=== PATIENT | female | born 1990 | race Caucasian/White ===

== ENCOUNTER 2019-04-05 09:24 | Outpatient (CLI) | payer BC, MEDICAID, SELFPAY ==
[2019-04-05 09:38] LABS: Basophils Absolute Auto 0.03 K/mm3 (0.00-0.10); Basophils Percent Auto 0.4 % (0.0-1.0); Eosinophils Absolute Auto 0.12 K/mm3 (0.02-0.50); Eosinophils Percent Auto 1.5 % (1.0-6.0); Hematocrit 40.8 % (35.0-49.0); Hemoglobin 13.9 g/dL (12.0-15.0); Immature Granulocyte Absolute 0.02 K/mm3 (0.00-0.00); Immature Granulocyte Percent A 0.2 % (0.0-0.0); Lymphocytes Absolute Auto 3.47 K/mm3 (1.10-4.50); Lymphocytes Percent Auto 43.3 % (18.0-42.0); Mean Corpuscular HGB Conc 34.1 g/dL (32.0-36.0); Mean Corpuscular Hemoglobin 31.8 pg (27.0-31.0); Mean Corpuscular Volume 93.4 fL (78.0-102.0); Mean Platelet Volume 9.8 fl (9.2-11.8); Monocytes Absolute Auto 1.01 K/mm3 (0.10-0.90); Monocytes Percent Auto 12.6 % (2.0-11.0); Neutrophils Absolute Auto 3.4 K/mm3 (1.7-7.2); Platelet Count Result 277 K/mm3 (150-420); Red Blood Count 4.37 M/mm3 (4.20-5.40); Red Cell Distribution Width 12.5 % (11.6-14.4)
[2019-04-05 10:59] LABS: Alanine Aminotransferase 24 U/L (14-59); Albumin Level 4.2 g/dL (3.4-5.0); Alkaline Phosphatase 62 U/L (46-116); Anion Gap 16.1 mmol/L (7-16); Aspartate Amino Transferase 14 U/L (15-37); Bilirubin,Total 0.4 mg/dL (0.00-1.00); Blood Urea Nitrogen 8 mg/dL (7-18); Calcium 9.5 mg/dL (8.5-10.1); Carbon Dioxide 25 mmol/L (21-32); Chloride 103 mmol/L (98-108); Cholesterol 144 mg/dL (0-200); Estimated Glomerular Filt Rate > 60; Glucose 86 mg/dL (70-99); HDL Direct 46 mg/dL (40-60); LDL Cholesterol Calculated 81 mg/dL (<130); Osmolality Calculated 287 mOsm/kg (285-295); Potassium 4.1 mmol/L (3.5-5.1); Sodium 140 mmol/L (136-145); Total Protein 7.8 g/dL (6.4-8.2); Triglycerides 85 mg/dL (0-150)
== END 2019-04-05 09:25 | disposition home or self-care (01) ==
LOC: CHSLAB 09:25
PROVIDERS: PCP Nurse Practitioner Family; Visit Provider Nurse Practitioner Family
DX: E78.5 Hyperlipidemia, unspecified (principal); I10 Essential (primary) hypertension
CPT/HCPCS: 36415; 80053; 80061; 85025

== ENCOUNTER 2020-08-23 11:50 | Outpatient (CLI) | payer BC, MEDICAID, SELFPAY ==
[2020-08-23 12:03] LABS: Basophils Absolute Auto 0.02 K/mm3 (0.00-0.10); Basophils Percent Auto 0.2 % (0.0-1.0); Eosinophils Absolute Auto 0.12 K/mm3 (0.02-0.50); Eosinophils Percent Auto 1.4 % (1.0-6.0); Hematocrit 39.2 % (35.0-49.0); Hemoglobin 13.1 g/dL (12.0-15.0); Immature Granulocyte Absolute 0.03 K/mm3 (0.00-0.00); Immature Granulocyte Percent A 0.3 % (0.0-0.0); Lymphocytes Absolute Auto 3.37 K/mm3 (1.10-4.50); Lymphocytes Percent Auto 39.1 % (18.0-42.0); Mean Corpuscular HGB Conc 33.4 g/dL (32.0-36.0); Mean Corpuscular Hemoglobin 31.6 pg (27.0-31.0); Mean Corpuscular Volume 94.7 fL (78.0-102.0); Mean Platelet Volume 9.5 fl (9.2-11.8); Monocytes Absolute Auto 1.13 K/mm3 (0.10-0.90); Monocytes Percent Auto 13.1 % (2.0-11.0); Neutrophils Absolute Auto 3.9 K/mm3 (1.7-7.2); Neutrophils Percent Auto 45.9 % (50.0-70.0); Platelet Count Result 278 K/mm3 (150-420); Red Blood Count 4.14 M/mm3 (4.20-5.40); Red Cell Distribution Width 12.5 % (11.6-14.4); White Blood Count 8.6 K/mm3 (4.8-10.8)
[2020-08-23 12:46] LABS: Alanine Aminotransferase 20 U/L (14-59); Albumin Level 3.6 g/dL (3.4-5.0); Alkaline Phosphatase 55 U/L (46-116); Anion Gap 10 mmol/L (8-16); Aspartate Amino Transferase 12 U/L (15-37); Bilirubin,Total 0.2 mg/dL (0.00-1.00); Blood Urea Nitrogen 10 mg/dL (7-18); Calcium 9.6 mg/dL (8.5-10.1); Carbon Dioxide 26 mmol/L (21-32); Chloride 104 mmol/L (98-108); Cholesterol 210 mg/dL (0-200); Estimated Glomerular Filt Rate > 60; Glucose 97 mg/dL (70-99); HDL Direct 43 mg/dL (40-60); LDL Cholesterol Calculated 124 mg/dL (<130); Osmolality Calculated 289 mOsm/kg (285-295); Potassium 4.1 mmol/L (3.5-5.1); Sodium 140 mmol/L (136-145); Total Protein 7.1 g/dL (6.4-8.2); Triglycerides 217 mg/dL (0-150)
== END 2020-08-23 11:51 | disposition home or self-care (01) ==
LOC: CHSLAB 11:53
PROVIDERS: PCP Nurse Practitioner Family; Visit Provider Nurse Practitioner Family
DX: I10 Essential (primary) hypertension (principal)
CPT/HCPCS: 36415; 80053; 80061; 85025

== ENCOUNTER 2021-11-02 15:54 | Outpatient (CLI) | payer BC, SELFPAY ==
[2021-11-02 16:09] LABS: Basophils Absolute Auto 0.02 K/mm3 (0.00-0.10); Basophils Percent Auto 0.2 % (0.0-1.0); Eosinophils Absolute Auto 0.02 K/mm3 (0.02-0.50); Eosinophils Percent Auto 0.2 % (1.0-6.0); Hematocrit 38.9 % (35.0-49.0); Hemoglobin 13.2 g/dL (12.0-15.0); Immature Granulocyte Absolute 0.03 K/mm3 (0.00-0.00); Immature Granulocyte Percent A 0.3 % (0.0-0.0); Lymphocytes Absolute Auto 2.41 K/mm3 (1.10-4.50); Lymphocytes Percent Auto 26.1 % (18.0-42.0); Mean Corpuscular HGB Conc 33.9 g/dL (32.0-36.0); Mean Corpuscular Hemoglobin 31.7 pg (27.0-31.0); Mean Corpuscular Volume 93.3 fL (78.0-102.0); Mean Platelet Volume 9.4 fl (9.2-11.8); Monocytes Absolute Auto 1.17 K/mm3 (0.10-0.90); Monocytes Percent Auto 12.7 % (2.0-11.0); Neutrophils Absolute Auto 5.6 K/mm3 (1.7-7.2); Neutrophils Percent Auto 60.5 % (50.0-70.0); Platelet Count Result 276 K/mm3 (150-420); Red Blood Count 4.17 M/mm3 (4.20-5.40); Red Cell Distribution Width 12.5 % (11.6-14.4); White Blood Count 9.2 K/mm3 (4.8-10.8)
[2021-11-02 16:25] LABS: Alanine Aminotransferase 15 U/L (14-59); Alkaline Phosphatase 52 U/L (46-116); Anion Gap 9 mmol/L (8-16); Aspartate Amino Transferase < 10 U/L (15-37); Bilirubin,Total 0.3 mg/dL (0.00-1.00); Blood Urea Nitrogen 9 mg/dL (7-18); Calcium 9.5 mg/dL (8.5-10.1); Carbon Dioxide 24 mmol/L (21-32); Chloride 98 mmol/L (98-108); Cholesterol 184 mg/dL (0-200); Estimated Glomerular Filt Rate > 60; HDL Direct 53 mg/dL (40-60); LDL Cholesterol Calculated 113 mg/dL (<130); Potassium 4.1 mmol/L (3.5-5.1); Sodium 131 mmol/L (136-145); Total Protein 7.6 g/dL (6.4-8.2); Triglycerides 90 mg/dL (0-150)
[2021-11-02 16:31] LABS: Glucose 95 mg/dL (70-99); Osmolality Calculated 270 mOsm/kg (285-295)
== END 2021-11-02 15:55 | disposition home or self-care (01) ==
PROVIDERS: PCP Nurse Practitioner Family; Visit Provider Nurse Practitioner Family
DX: I10 Essential (primary) hypertension (principal); E78.5 Hyperlipidemia, unspecified
CPT/HCPCS: 36415; 80053; 80061; 85025

== ENCOUNTER 2022-01-31 16:31 | Outpatient (CLI) | payer BC, SELFPAY ==
[2022-01-31 18:01] LABS: Add Urine Microscopic? NO; Appearance Urine Clear (Clear); Bilirubin Urine Negative (Negative); Blood Urine Negative (Negative); Color Urine Yellow (Yellow); Glucose Urine UA Negative (Negative); Ketones Urine Negative (Negative); Leukocyte Esterase Ur Negative LEU/UL (Negative); Nitrate Urine Negative (Negative); Protein Urine Negative (Negative); Urobilinogen Urine 0.2 mg/dL (0.2-1.0)
[2022-01-31 18:37] LABS: Alanine Aminotransferase 16 U/L (14-59); Albumin Level 4.2 g/dL (3.4-5.0); Alkaline Phosphatase 57 U/L (46-116); Anion Gap 10 mmol/L (8-16); Aspartate Amino Transferase 12 U/L (15-37); Bilirubin,Total 0.4 mg/dL (0.00-1.00); Blood Urea Nitrogen 6 mg/dL (7-18); Calcium 9.6 mg/dL (8.5-10.1); Carbon Dioxide 27 mmol/L (21-32); Chloride 103 mmol/L (98-108); Estimated Glomerular Filt Rate > 60; Glucose 101 mg/dL (70-99); Osmolality Calculated 287 mOsm/kg (285-295); Potassium 4.6 mmol/L (3.5-5.1); Sodium 140 mmol/L (136-145); Total Protein 7.4 g/dL (6.4-8.2)
== END 2022-01-31 16:32 | disposition home or self-care (01) ==
LOC: CHSLAB 16:33
PROVIDERS: PCP Nurse Practitioner Family; Visit Provider Nurse Practitioner Family
DX: R11.0 Nausea (principal); I10 Essential (primary) hypertension; Z87.898 Personal history of other specified conditions
CPT/HCPCS: 36415; 80053; 81003

== ENCOUNTER 2022-06-08 23:10 | Emergency (ER) | payer BC, OTHER, SELFPAY ==
[2022-06-08 23:10] VITALS: BP 131/88; PULSE 88; RESP 20; TEMP 36.8; O2SAT 99
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
--- NOTE | 2022-06-08 23:51 | ECG_ITS ---
Measurements Intervals [place] Rate: 84 P: 41 HI: 155 QRS: 27 QRSD: 91 T: 18 QT: 345 QTc: 408 Interpretive Statements SINUS RHYTHM WITH SINUS ARRHYTHMIA BASELINE ARTIFACT NORMAL ECG NO PREVIOUS ECG AVAILABLE FOR COMPARISON Electronically Signed On 06-10-2022 15:40:22 CDT by Eric Valiente M.D.
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
[2022-06-09 00:16] LABS: Basophils Absolute Auto 0.02 K/mm3 (0.00-0.10); Basophils Percent Auto 0.2 % (0.0-1.0); Eosinophils Absolute Auto 0.05 K/mm3 (0.02-0.50); Eosinophils Percent Auto 0.5 % (1.0-6.0); Hematocrit 37.9 % (35.0-49.0); Hemoglobin 12.4 g/dL (12.0-15.0); Immature Granulocyte Absolute 0.03 K/mm3 (0.00-0.00); Immature Granulocyte Percent A 0.3 % (0.0-0.0); Lymphocytes Absolute Auto 2.39 K/mm3 (1.10-4.50); Lymphocytes Percent Auto 23.1 % (18.0-42.0); Mean Corpuscular HGB Conc 32.7 g/dL (32.0-36.0); Mean Corpuscular Hemoglobin 31.3 pg (27.0-31.0); Mean Corpuscular Volume 95.7 fL (78.0-102.0); Mean Platelet Volume 9.4 fl (9.2-11.8); Monocytes Percent Auto 7.7 % (2.0-11.0); Neutrophils Absolute Auto 7.1 K/mm3 (1.7-7.2); Neutrophils Percent Auto 68.2 % (50.0-70.0); Platelet Count Result 284 K/mm3 (150-420); Red Blood Count 3.96 M/mm3 (4.20-5.40); Red Cell Distribution Width 12.7 % (11.6-14.4); White Blood Count 10.4 K/mm3 (4.8-10.8)
--- NOTE | 2022-06-09 00:39 | PC.NURSE ---
This RN contacted [facility] to see what needs to be done with the pt. Abdulkadir from [facility] reports he is on his way to evaluate the pt.
[2022-06-09 00:41] LABS: Acetaminophen < 2 ug/mL (10-30); Alanine Aminotransferase 19 U/L (14-59); Albumin Level 4.1 g/dL (3.4-5.0); Alkaline Phosphatase 54 U/L (46-116); Anion Gap 12 mmol/L (8-16); Aspartate Amino Transferase 13 U/L (15-37); Bilirubin,Total 0.3 mg/dL (0.00-1.00); Blood Urea Nitrogen 10 mg/dL (7-18); Calcium 9.4 mg/dL (8.5-10.1); Carbon Dioxide 27 mmol/L (21-32); Chloride 104 mmol/L (98-108); Estimated CRCL calculation 87 ml/min; Estimated Glomerular Filt Rate > 60; Ethanol < 3 mg/dL (0-6); Glucose 110 mg/dL (70-99); Osmolality Calculated 296 mOsm/kg (285-295); Potassium 3.7 mmol/L (3.5-5.1); Salicylate 0.6 mg/dL (2.8-20.0); Sodium 143 mmol/L (136-145); Thyroid Stimulating Hormone 1.54 uIU/mL (0.36-3.74); Total Protein 7.6 g/dL (6.4-8.2)
--- NOTE | 2022-06-09 01:28 | PC.NURSE ---
[facility] lead customer service representative arrived to assess the pt
[2022-06-09] MEDS: ACETAMINOPHEN 160 MG/5 ML ORAL SYRINGE 640 MG PO (04:20)
[2022-06-09 05:33] VITALS: BP 131/81; PULSE 88; RESP 20; TEMP 36.9; O2SAT 99
== END 2022-06-09 05:41 | disposition home or self-care (01) ==
PROVIDERS: Emergency Provider Emergency Medicine
DX: F39 Unspecified mood [affective] disorder (principal); I10 Essential (primary) hypertension; E78.5 Hyperlipidemia, unspecified; G40.909 Epilepsy, unspecified, not intractable, without status epilepticus
CPT/HCPCS: 36415; 80053; 80307; 84443; 85025; 93005; 99283; A9270

== ENCOUNTER 2022-08-07 15:46 | Outpatient (CLI) | payer BC, OTHER, SELFPAY ==
[2022-08-07 17:13] LABS: Iron 38 ug/dL (50-170); Vitamin B12 507 pg/mL (193-986)
[2022-08-10 17:45] LABS: Vitamin D 25 Hydroxy 23 ng/mL (30-100)
== END 2022-08-07 15:47 | disposition home or self-care (01) ==
LOC: CHSLAB 15:49
PROVIDERS: PCP Nurse Practitioner Family; Visit Provider Nurse Practitioner Family
DX: R53.83 Other fatigue (principal); Z79.899 Other long term (current) drug therapy
CPT/HCPCS: 36415; 82306; 82607; 83540

== ENCOUNTER 2023-11-07 14:53 | Outpatient (CLI) | payer BC, OTHER, SELFPAY ==
[2023-11-07 15:40] LABS: Basophils Absolute Auto 0.04 K/mm3 (0.00-0.10); Basophils Percent Auto 0.5 % (0.0-1.0); Eosinophils Absolute Auto 0.07 K/mm3 (0.02-0.50); Eosinophils Percent Auto 0.9 % (1.0-6.0); Hematocrit 41.4 % (35.0-49.0); Hemoglobin 13.5 g/dL (12.0-15.0); Immature Granulocyte Absolute 0.02 K/mm3 (0.00-0.00); Immature Granulocyte Percent A 0.3 % (0.0-0.0); Lymphocytes Absolute Auto 2.69 K/mm3 (1.10-4.50); Lymphocytes Percent Auto 36.2 % (18.0-42.0); Mean Corpuscular HGB Conc 32.6 g/dL (32-36); Mean Corpuscular Volume 98.1 fL (78.0-102.0); Mean Platelet Volume 10.6 fl (9.2-11.8); Monocytes Absolute Auto 0.94 K/mm3 (0.10-0.90); Monocytes Percent Auto 12.6 % (2.0-11.0); Neutrophils Absolute Auto 3.68 K/mm3 (1.70-7.20); Neutrophils Percent Auto 49.5 % (50.0-70.0); Platelet Count Result 209 K/mm3 (150-420); Red Blood Count 4.22 M/mm3 (4.20-5.40); Red Cell Distribution Width 13.2 % (11.6-14.4); White Blood Count 7.4 K/mm3 (4.8-10.8)
[2023-11-07 15:58] LABS: Add Urine Microscopic? NO; Appearance Urine Clear (Clear); Bilirubin Urine Negative (Negative); Blood Urine Negative (Negative); Color Urine Light Yellow (Yellow); Glucose Urine UA Negative (Negative); Ketones Urine Negative (Negative); Leukocyte Esterase Ur Negative LEU/UL (Negative); Nitrate Urine Negative (Negative); Protein Urine Negative (Negative); Specific Grav Ur 1.015 (1.010-1.020); Urobilinogen Urine 0.2 mg/dL (0.2-1.0); pH Urine 6.5 (5.0-8.0)
[2023-11-09 04:08] LABS: Vitamin D 25 Hydroxy 24 ng/mL (30-100)
[2023-11-09 09:24] LABS: Alanine Aminotransferase 13 U/L (6-35); Albumin Level 4.7 g/dL (3.5-5.1); Alkaline Phosphatase 47 U/L (38-126); Anion Gap 12 mmol/L (4-12); Aspartate Amino Transferase 20 U/L (14-36); Bilirubin,Total 0.4 mg/dL (0.2-1.3); Blood Urea Nitrogen 8 mg/dL (7-17); Calcium 9.9 mg/dL (8.4-10.2); Carbon Dioxide 27 mmol/L (22-30); Chloride 101 mmol/L (98-107); Estimated Glomerular Filt Rate > 60; Glucose 84 mg/dL (65-110); Iron 107 ug/dL (37-170); Magnesium 1.8 mg/dL (1.6-2.3); Osmolality Calculated 287 mOsm/kg (285-295); Potassium 4.2 mmol/L (3.4-5.0); Sodium 140 mmol/L (137-145)
== END 2023-11-07 14:54 | disposition home or self-care (01) ==
PROVIDERS: PCP Nurse Practitioner Family; Visit Provider Nurse Practitioner Family
DX: D50.9 Iron deficiency anemia, unspecified (principal); R53.83 Other fatigue; Z87.898 Personal history of other specified conditions; Z79.899 Other long term (current) drug therapy
CPT/HCPCS: 36415; 80053; 81003; 82306; 82607; 82728; 83540; 83735; 85025

== ENCOUNTER 2024-09-06 13:25 | Emergency (ER) | payer OTHER, SELFPAY ==
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
--- OUTSIDE RECORDS SUMMARY | 2024-09-06 13:27 | XMS_ITS | Clinical Summary ---
Author Organization [facility] [employer] Address [address] [place] [address] Care Team Providers Care Vocational Rehab Consultant Name Role Phone Kan Gordillo MD Primary Care Provider [phone] Source Comments [facility] [employer],non-owned Affiliates and Associated Physician Practices is amultiple site organization consisting of ambulatory clinics and hospital sitesin [place], [place], [place] and [place]. This disclosure is being madepursuant to the Care Everywhere program and may not contain all information available regarding this patient. Last updated 17.[facility] Allergies No known active allergies Medications * Be aware that medications may not be up to date on this document. Alwaysverify current medications with the patient. divalproex (DEPAKOTE SPRINKLES) 125 MG capsuleIndicati ons:Seizures (HCC) Take 6 Caps by mouth 2 times daily. No further refills until appointment is made. 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 Gender Identity Not on file Sexual Orientation Not on file Last Filed Vital Signs Vital Sign Reading Time Taken Comments Blood Pressure 100/62 12/12/2010 9:39 AM CDT Pulse - - Temperature - - Respiratory Rate - - Oxygen Saturation - - Inhaled Oxygen Concentration - - Weight 99 kg (218 lb 4.1 oz) 12/12/2010 9:39 AM CDT Height 170.6 cm (5' 7.17) 12/12/2010 9:39 AM CD T Body Mass Index 34.02 12/12/2010 9:39 AM CDT Plan of Treatment Health Maintenance Due Date Last Done Comments HIV SCREENING 09/16/2006 HEPATITIS C SCREENING 09/12/2009 DTAP/TDAP/TD VACCINES (1 - Tdap) 09/16/2010 HEPATITIS B VACCINE (1 of 3 - 19+ 3-dose series) 09/16/2010 COVID-19 VACCINE (1 - 2023-2 5 season) 2023 DEPRESSION SCREENING 03/05/2024 INFLUENZA VACCINE (Season Ended) 2024 ZOSTER VACCINE (1 of 2) 09/16/2041 HIB VACCINE Aged Out No longer eligi ble based on patient's age to complete this topic HPV VACCINE Aged Out No longer eligi ble based on patient's age to complete this topic MENINGOCOCCAL (Group B) VACC INE SHARED DECISION-MAKING Aged Out No longer eligibl e based on patient's age to complete this topic MENINGOCOCCAL GROUPS A/C/Y/W VACCINE Aged Out No longer eligible b ased on patient's age to complete this topic PNEUMOCOCCAL VACCINE Aged Out No long er eligible based on patient's age to complete this topic Care Teams Vocational Rehab Consultant Relationship Specialty Start Date End Date Kan Gordillo MD [address] [place] [address] PCP - General 12/09/10
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
[2024-09-06 13:29] VITALS: BP 123/94; PULSE 112; RESP 16; TEMP 36.6; O2SAT 99
--- NOTE | 2024-09-06 13:33 | ED.GENADULT ---
HPI - General Adult General Chief complaint: Unspecified Stated complaint: behavioral issues Time Seen by Provider: 09/06/24 13:33 Related Data Home Medications ?Medication ?Instructions ?Recorded ?Confirmed ?Last Taken ?Type divalproex 125 mg capsule,delayed 125 mg PO TID 08/07/22 11/07/23 Unknown History release sprinkle (Depakote Sprinkles) Allergies Allergy/AdvReac Type Severity Reaction Status Date / Time No Known Allergies Allergy Verified 09/06/24 13:31 [facility] Past Medical History Medical History (Updated 12/31/23 @ 13:44 by Eliana Humphrey NP) Moderate intellectual disabilities Hyperlipidemia HTN (hypertension) Seizure disorder Surgical History Surgical History [place] teeth removed Family History Family History Grandparent Lung cancer Social History Social History Smoking status: Never smoker Tobacco type: cigarettes Course Vital Signs Vital signs: Vital Signs Temperature 36.6 C 09/06/24 13:29 Pulse Rate 112 H 09/06/24 13:29 Respiratory Rate 16 09/06/24 13:29 Blood Pressure 123/94 H 09/06/24 13:29 Pulse Oximetry 99 09/06/24 13:29 Oxygen Delivery Room Air 09/06/24 13:29 Temperature 36.6 C 09/06/24 13:29 Pulse Rate 112 H 09/06/24 13:29 Respiratory Rate 16 09/06/24 13:29 Blood Pressure 123/94 H 09/06/24 13:29 Pulse Oximetry 99 09/06/24 13:29 Oxygen Delivery Room Air 09/06/24 13:29 Medical Decision Making Vital Signs Vital Signs: Vital Signs Temperature 36.6 C 09/06/24 13:29 Pulse Rate 112 H 09/06/24 13:29 Respiratory Rate 16 09/06/24 13:29 Blood Pressure 123/94 H 09/06/24 13:29 Pulse Oximetry 99 09/06/24 13:29 Oxygen Delivery Room Air 09/06/24 13:29 Temperature 36.6 C 09/06/24 13:29 Pulse Rate 112 H 09/06/24 13:29 Respiratory Rate 16 09/06/24 13:29 Blood Pressure 123/94 H 09/06/24 13:29 Pulse Oximetry 99 09/06/24 13:29 Oxygen Delivery Room Air 09/06/24 13:29 Discharge Plan Discharge Patient Language: Lebanese Prescriptions: No Action divalproex [Depakote Sprinkles] 125 mg capsule, delayed rel sprinkle 125 mg PO TID Rx Instructions: take 4 tablets QAM take 4 tablets HS escitalopram oxalate 5 mg/5 mL solution See Rx Instructions .ROUTE .COMPLEX Qty: 300 2RF Dose Instruction: TAKE 10 ML BY MOUTH DAILY Rx Instructions: TAKE 10 ML BY MOUTH DAILY Follow-up/Referrals: UNKNOWN,DOCTOR [Primary Care Provider] -
--- NOTE | 2024-09-06 13:40 | ED.PSYCH ---
HPI - Psych General Chief Complaint: Unspecified <Pradip Geronimo MD - Last Filed: 09/07/24 07:13> Stated Complaint: behavioral issues <Pradip Geronimo MD - Last Filed: 09/07/24 07:13> Time Seen by Provider: 09/06/24 13:33 <Pradip Geronimo MD - Last Filed: 09/07/24 07:13> Source: patient <Pradip Geronimo MD - Last Filed: 09/07/24 07:13> Mode of arrival: ambulatory <Pradip Geronimo MD - Last Filed: 09/07/24 07:13> Limitations: no limitations <Pradip Geronimo MD - Last Filed: 09/07/24 07:13> History of Present Illness HPI Narrative: 33-year-old female with a history hypertension, dyslipidemia, Ca disorder, developmental delay with intellectual disability, anger outbursts was brought in by EMS for -- aggressive behavior. The patient wanted to go out but mother did not want her to leave the house. The patient got angry and punched a glass window. The patient has had prior episodes of anger outburst. EN route to the hospital as by EMS the patient has been quiet and calm. -- Abrasions over the right hand from punching a glass window. <Pradip Geronimo MD - Last Filed: 09/07/24 07:13> MD complaint: other <Pradip Geronimo MD - Last Filed: 09/07/24 07:13> Onset (ago): hour(s) ( 3 hours) <Pradip Geronimo MD - Last Filed: 09/07/24 07:13> History of same: Yes <Pradip Geronimo MD - Last Filed: 09/07/24 07:13> Relieving factors: none <Pradip Geronimo MD - Last Filed: 09/07/24 07:13> Exacerbating factors: none <Pradip Geronimo MD - Last Filed: 09/07/24 07:13> Associated psychiatric symptoms: none <Pradip Geronimo MD - Last Filed: 09/07/24 07:13> Associated symptoms: denies other symptoms <Pradip Geronimo MD - Last Filed: 09/07/24 07:13> Treatments prior to arrival: none <Pradip Geronimo MD - Last Filed: 09/07/24 07:13> Details of plan: patient is unable to comprehend on being asked whether she is suicidal or homicidal. <Pradip Geronimo MD - Last Filed: 09/07/24 07:13> Related Data Home Medications: Home Medications ?Medication ?Instructions ?Recorded ?Confirmed ?Last Taken ?Type divalproex 125 mg capsule,delayed 125 mg PO TID 08/07/22 11/07/23 Unknown History release sprinkle (Depakote Sprinkles) <Pradip Geronimo MD - Last Filed: 09/07/24 07:13> Allergies/Adverse Reactions: Allergies Allergy/AdvReac Type Severity Reaction Status Date / Time No Known Allergies Allergy Verified 09/06/24 13:31 <Pradip Geronimo MD - Last Filed: 09/07/24 07:13> Review of Systems Review of Systems: All systems reviewed & are unremarkable except as noted in HPI and below <Pradip Geronimo MD - Last Filed: 09/07/24 07:13> ROS unobtainable: Yes unobtainable due to mental status <Pradip Geronimo MD - Last Filed: 09/07/24 07:13> PMFSH Past Medical History Medical History: Medical History (Updated 09/07/24 @ 09:56 by Jimmie Rucker MD) Moderate intellectual disabilities Hyperlipidemia HTN (hypertension) Seizure disorder <Pradip Geronimo MD - Last Filed: 09/07/24 07:13> Surgical History Surgical History: Surgical History [place] teeth removed <Pradip Geronimo MD - Last Filed: 09/07/24 07:13> Family History Family History: Family History Grandparent Lung cancer <Pradip Geronimo MD - Last Filed: 09/07/24 07:13> Social History Social History: Social History Smoking status: Never smoker Tobacco type: cigarettes <Pradip eGronimo MD - Last Filed: 09/07/24 07:13> Exam Narrative: Pulse 112. Blood pressure 123/94. Oxygen saturation 99% on room air. Afebrile <Pradip Geronimo MD - Last Filed: 09/07/24 07:13> Const: General: healthy appearing and no acute distress <Pradip Geronimo MD - Last Filed: 09/07/24 07:13> Nutritional Appearance: well nourished <Pradip Geronimo MD - Last Filed: 09/07/24 07:13> HENMT: Head: normal to inspection <Pradip Geronimo MD - Last Filed: 09/07/24 07:13> Ears: external ears normal <Pradip Geronimo MD - Last Filed: 09/07/24 07:13> Face/Nose/Sinus: Normal external nose present <Pradip Geronimo MD - Last Filed: 09/07/24 07:13> Face and sinus: normal facial exam <Pradip Geronimo MD - Last Filed: 09/07/24 07:13> Mouth: Yes Normal oral and palatal mucosa present <Pradip Geronimo MD - Last Filed: 09/07/24 07:13> Throat: posterior oropharynx normal <Pradip Geronimo MD - Last Filed: 09/07/24 07:13> Eyes: Conjunctivae: conjunctivae normal <Pradip Geronimo MD - Last Filed: 09/07/24 07:13> Pupils: Equal, round and reactive pupils present <Pradip Geronimo MD - Last Filed: 09/07/24 07:13> EOM: EOMs intact bilaterally <Pradip Geronimo MD - Last Filed: 09/07/24 07:13> Direct Ophthalmoscopy: no photophobia <Pradip Geronimo MD - Last Filed: 09/07/24 07:13> Neck: Neck: normal visual inspection, no lymphadenopathy and no meningeal signs <Pradip Geronimo MD - Last Filed: 09/07/24 07:13> Chest: Chest palpation & inspection: normal inspection of the chest <Pradip Geronimo MD - Last Filed: 09/07/24 07:13> Resp: Effort & Inspection: normal respiratory effort <Pradip Geronimo MD - Last Filed: 09/07/24 07:13> Auscultation: clear to auscultation bilaterally <Pradip Geronimo MD - Last Filed: 09/07/24 07:13> Cardio: Rate: regular rate <Pradip Geronimo MD - Last Filed: 09/07/24 07:13> Rhythm: regular rhythm <Pradip Geronimo MD - Last Filed: 09/07/24 07:13> GI: GI Palp: Yes Soft to palpation <Pradip Geronimo MD - Last Filed: 09/07/24 07:13> Auscultation: normal bowel sounds <Pradip Geronimo MD - Last Filed: 09/07/24 07:13> Other: no tenderness/ rigidity / rebound. <Pradip Geronimo MD - Last Filed: 09/07/24 07:13> Back/Spine/Pelvis: Back: no CVA tenderness <Pradip Geronimo MD - Last Filed: 09/07/24 07:13> Skin: General skin exam: normal color <Pradip Geronimo MD - Last Filed: 09/07/24 07:13> Other: Few abrasions on the right hand. Bruising of the left elbow and left knee. <Pradip Geronimo MD - Last Filed: 09/07/24 07:13> Neuro: General: patient oriented x3, moves all extremities, no meningeal signs, no focal motor deficits and CN's II-XI intact bilaterally <Pradip Geronimo MD - Last Filed: 09/07/24 07:13> Cranial nerves: Yes Nystagmus not present <Pradip Geronimo MD - Last Filed: 09/07/24 07:13> Speech: normal speech <Pradip Geronimo MD - Last Filed: 09/07/24 07:13> Gait exam (Neuro): Normal gait present <Pradip Geronimo MD - Last Filed: 09/07/24 07:13> Extrem: General: normal to inspection and no clubbing, cyanosis or edema <Pradip Geronimo MD - Last Filed: 09/07/24 07:13> Psych: Mental Status: mental status grossly normal <Pradip Geronimo MD - Last Filed: 09/07/24 07:13> Affect: normal affect <Pradip Geronimo MD - Last Filed: 09/07/24 07:13> Attitude: cooperative <Pradip Geronimo MD - Last Filed: 09/07/24 07:13> Course Course Emergency Course: Intellectual disability anger outbursts patient is medically cleared for psychiatric evaluation. unable to get placement until now. Patient has been signed down to Dr. Fleming at 7:00 a.m.. <Pradip Geronimo MD - Last Filed: 09/07/24 07:13> Vital Signs Vital signs: Vital Signs Temperature 36.6 C 09/06/24 13:29 Pulse Rate 112 H 09/06/24 13:29 Respiratory Rate 16 09/06/24 13:29 Blood Pressure 123/94 H 09/06/24 13:29 Pulse Oximetry 99 09/06/24 13:29 Oxygen Delivery Room Air 09/06/24 13:29 Temperature 36.6 C 09/07/24 10:11 Pulse Rate 83 09/07/24 10:11 Respiratory Rate 18 09/07/24 10:11 Blood Pressure 102/71 09/07/24 10:11 Pulse Oximetry 100 09/07/24 10:11 Oxygen Delivery Room Air 09/07/24 10:11 <Pradip Geronimo MD - Last Filed: 09/07/24 07:13> Vital Signs Temperature 36.6 C 09/06/24 13:29 Pulse Rate 112 H 09/06/24 13:29 Respiratory Rate 16 09/06/24 13:29 Blood Pressure 123/94 H 09/06/24 13:29 Pulse Oximetry 99 09/06/24 13:29 Oxygen Delivery Room Air 09/06/24 13:29 Temperature 36.6 C 09/07/24 10:11 Pulse Rate 83 09/07/24 10:11 Respiratory Rate 18 09/07/24 10:11 Blood Pressure 102/71 09/07/24 10:11 Pulse Oximetry 100 09/07/24 10:11 Oxygen Delivery Room Air 09/07/24 10:11 <Jimmie Rucker MD - Last Filed: 09/07/24 12:13> MDM - Psych MDM Narrative Medical decision making narrative: creative services manager have called from the psychiatric services and said that okay to discharge patient based on all parties have deflected from their point of view. Father is present and we are letting him know that we are discharging the patient to his care. creative services manager will get in touch with the patient and family to give further resources. We will discharge patient at this time and give Keflex for antibiotics for UTI. At discharge, the patient was throwing a temper tantrum and required extra staff and PD to assist with getting her into the car. This was a similar scenario as her other hospital visits over the past week when it is time for discharge. The patient does not want live at home anymore and that is what stimulates her to have a tantrum. We did give her a home dose of her Ativan which was not for restraint or sedation above and beyond her baseline medication from home. We gave the same dose of 1 mg Ativan that she takes regularly when agitated. There was a controlled environment to help get patient into her car. No injuries occurred. Successful task. <Jimmie Rucker MD - Last Filed: 09/07/24 12:13> Lab Data Attestation: I reviewed the patient's lab results. <Jimmie Rucker MD - Last Filed: 09/07/24 12:13> Result diagrams: 09/06/24 14:18 09/06/24 14:18 <Pradip Geronimo MD - Last Filed: 09/07/24 07:13> Labs: Lab Results 09/06/24 Range/Units 14:18 WBC 8.9 (4.8-10.8) K/mm3 RBC 4.34 (4.20-5.40) M/mm3 Hgb 13.4 (12.0-15.0) g/dL Hct 40.7 (35.0-49.0) % MCV 93.8 (78.0-102.0) fL MCH 30.9 (27.0-31.0) pg MCHC 32.9 (32-36) g/dL RDW 12.4 (11.6-14.4) % Plt Count 253 (150-420) K/mm3 MPV 9.6 (9.2-11.8) fl Immature Gran % (Auto) 0.3 H (0.0-0.0) % Neut % (Auto) 65.8 (50.0-70.0) % Lymph % (Auto) 23.7 (18.0-42.0) % [place] % (Auto) 9.2 (2.0-11.0) % Eos % (Auto) 0.7 L (1.0-6.0) % Baso % (Auto) 0.3 (0.0-1.0) % Lymph # (Auto) 2.11 (1.10-4.50) K/mm3 [place] # (Auto) 0.82 (0.10-0.90) K/mm3 Eos # (Auto) 0.06 (0.02-0.50) K/mm3 Baso # (Auto) 0.03 (0.00-0.10) K/mm3 Abs Immat Gran (auto) 0.03 H (0.00-0.00) K/mm3 Absolute Neuts (auto) 5.84 (1.70-7.20) K/mm3 Absolute Nucleated RBC 0.00 (0.00-0.00) K/mm3 Nucleated RBC % 0.0 (0-0.0) % Sodium 140 (137-145) mmol/L Potassium 4.3 (3.4-5.0) mmol/L Chloride 108 H (98-107) mmol/L Carbon Dioxide 28 (22-30) mmol/L Anion Gap 4 (4-12) mmol/L BUN 12 (7-17) mg/dL Creatinine 0.86 (0.7-1.0) mg/dL Estim Creat Clear Calc 91 ml/min Estimated GFR > 60 (59 - ) Glucose 89 (65-110) mg/dL Calculated Osmolality 288 (285-295) mOsm/kg Calcium 9.0 (8.4-10.2) mg/dL Total Bilirubin 0.5 (0.2-1.3) mg/dL AST 26 (14-36) U/L ALT 13 (6-35) U/L Alkaline Phosphatase 52 (38-126) U/L Total Protein 7.7 (6.3-8.2) g/dL Albumin 4.3 (3.5-5.1) g/dL TSH 1.680 (0.465-4.680) uIU/mL Urine Color Yellow (Yellow) Urine Appearance Clear (Clear) Urine pH 6.5 (5.0-8.0) Ur Specific [place] 1.020 (1.010-1.020) Urine Protein Negative (Negative) Urine Glucose (UA) Negative (Negative) Urine Ketones Negative (Negative) Ur Blood (Man) 2+ H (Negative) Urine Nitrate Negative (Negative) Urine Bilirubin Negative (Negative) Urine Urobilinogen 0.2 (0.2-1.0) mg/dL Leukocyte Esterase Rfl Trace H (Negative) SHAYNA/UL Urine RBC 6-10 H (0-2) /hpf Urine WBC 4-6 H (0-3) /hpf Ur Squamous Epith Cells Few (Few) /hpf Urine Bacteria Trace (None) /hpf Ur Oval Fat Bodies None (None) /lpf Urine Test Negative Salicylates < 1.0 L (2-20) mg/dL Urine Opiates Screen Negative (Negative) Urine Methadone Screen Negative (Negative) Acetaminophen < 10 L (10-30) ug/mL Ur Barbiturates Screen Negative (Negative) Ur Phencyclidine Scrn Negative (Negative) Ur Amphetamine Screen Negative (Negative) U Benzodiazepines Scrn Negative (Negative) Urine Cocaine Screen Negative (Negative) U Cannabinoids Screen Negative (Negative) Ethyl Alcohol < 10 (<10) mg/dL <Pradip Geronimo MD - Last Filed: 09/07/24 07:13> Lab Results 09/06/24 Range/Units 14:18 WBC 8.9 (4.8-10.8) K/mm3 RBC 4.34 (4.20-5.40) M/mm3 Hgb 13.4 (12.0-15.0) g/dL Hct 40.7 (35.0-49.0) % MCV 93.8 (78.0-102.0) fL MCH 30.9 (27.0-31.0) pg MCHC 32.9 (32-36) g/dL RDW 12.4 (11.6-14.4) % Plt Count 253 (150-420) K/mm3 MPV 9.6 (9.2-11.8) fl Immature Gran % (Auto) 0.3 H (0.0-0.0) % Neut % (Auto) 65.8 (50.0-70.0) % Lymph % (Auto) 23.7 (18.0-42.0) % [place] % (Auto) 9.2 (2.0-11.0) % Eos % (Auto) 0.7 L (1.0-6.0) % Baso % (Auto) 0.3 (0.0-1.0) % Lymph # (Auto) 2.11 (1.10-4.50) K/mm3 [place] # (Auto) 0.82 (0.10-0.90) K/mm3 Eos # (Auto) 0.06 (0.02-0.50) K/mm3 Baso # (Auto) 0.03 (0.00-0.10) K/mm3 Abs Immat Gran (auto) 0.03 H (0.00-0.00) K/mm3 Absolute Neuts (auto) 5.84 (1.70-7.20) K/mm3 Absolute Nucleated RBC 0.00 (0.00-0.00) K/mm3 Nucleated RBC % 0.0 (0-0.0) % Sodium 140 (137-145) mmol/L Potassium 4.3 (3.4-5.0) mmol/L Chloride 108 H (98-107) mmol/L Carbon Dioxide 28 (22-30) mmol/L Anion Gap 4 (4-12) mmol/L BUN 12 (7-17) mg/dL Creatinine 0.86 (0.7-1.0) mg/dL Estim Creat Clear Calc 91 ml/min Estimated GFR > 60 (59 - ) Glucose 89 (65-110) mg/dL Calculated Osmolality 288 (285-295) mOsm/kg Calcium 9.0 (8.4-10.2) mg/dL Total Bilirubin 0.5 (0.2-1.3) mg/dL AST 26 (14-36) U/L ALT 13 (6-35) U/L Alkaline Phosphatase 52 (38-126) U/L Total Protein 7.7 (6.3-8.2) g/dL Albumin 4.3 (3.5-5.1) g/dL TSH 1.680 (0.465-4.680) uIU/mL Urine Color Yellow (Yellow) Urine Appearance Clear (Clear) Urine pH 6.5 (5.0-8.0) Ur Specific [place] 1.020 (1.010-1.020) Urine Protein Negative (Negative) Urine Glucose (UA) Negative (Negative) Urine Ketones Negative (Negative) Ur Blood (Man) 2+ H (Negative) Urine Nitrate Negative (Negative) Urine Bilirubin Negative (Negative) Urine Urobilinogen 0.2 (0.2-1.0) mg/dL Leukocyte Esterase Rfl Trace H (Negative) SHAYNA/UL Urine RBC 6-10 H (0-2) /hpf Urine WBC 4-6 H (0-3) /hpf Ur Squamous Epith Cells Few (Few) /hpf Urine Bacteria Trace (None) /hpf Ur Oval Fat Bodies None (None) /lpf Urine Test Negative Salicylates < 1.0 L (2-20) mg/dL Urine Opiates Screen Negative (Negative) Urine Methadone Screen Negative (Negative) Acetaminophen < 10 L (10-30) ug/mL Ur Barbiturates Screen Negative (Negative) Ur Phencyclidine Scrn Negative (Negative) Ur Amphetamine Screen Negative (Negative) U Benzodiazepines Scrn Negative (Negative) Urine Cocaine Screen Negative (Negative) U Cannabinoids Screen Negative (Negative) Ethyl Alcohol < 10 (<10) mg/dL <Jimmie Rucker MD - Last Filed: 09/07/24 12:13> ECG Data EKG #1: ECG completion date: 09/06/24 <Pradip Geronimo MD - Last Filed: 09/07/24 07:13> ECG completion time: 14:27 <Pradip Geronimo MD - Last Filed: 09/07/24 07:13> Interpretation: normal sinus rhythm. Normal axis. No ST/T-wave changes noted. <Pradip Geronimo MD - Last Filed: 09/07/24 07:13> Discharge Plan Discharge Clinical Impression: Mood swings UTI (urinary tract infection) Qualifiers: Urinary tract infection type: acute cystitis Hematuria presence: without hematuria Qualified Code(s): N30.00 - Acute cystitis without hematuria <Pradip Geronimo MD - Last Filed: 09/07/24 07:13> Patient Disposition: Home <Pradip Geronimo MD - Last Filed: 09/07/24 07:13> Condition: Stable <Pradip Geronimo MD - Last Filed: 09/07/24 07:13> Instructions: Antibiotic Form, Urinary Tract Infection in Women (DC), Mood Disorders (ED) <Pradip Geronimo MD - Last Filed: 09/07/24 07:13> Additional Instructions: Please continue same medication plans. You will get a call from vp digital marketing social media and crm of Psychiatry about some resources for the patient. <Pradip Geronimo MD - Last Filed: 09/07/24 07:13> Patient Language: [place] <Pradip Geronimo MD - Last Filed: 09/07/24 07:13> Prescriptions: New cephalexin 500 mg capsule 500 mg PO BID 5 Days Qty: 10 0RF No Action divalproex [Depakote Sprinkles] 125 mg capsule, delayed rel sprinkle 125 mg PO TID Rx Instructions: take 4 tablets QAM take 4 tablets HS escitalopram oxalate 5 mg/5 mL solution See Rx Instructions .ROUTE .COMPLEX Qty: 300 2RF Dose Instruction: TAKE 10 ML BY MOUTH DAILY Rx Instructions: TAKE 10 ML BY MOUTH DAILY <Pradip Geronimo MD - Last Filed: 09/07/24 07:13> Follow-up/Referrals: UNKNOWN,DOCTOR [Non-Staff] - <Pradip Geronimo MD - Last Filed: 09/07/24 07:13> Time of Disposition: 10:08 <Pradip Geronimo MD - Last Filed: 09/07/24 07:13> 10:08 <Jimmie Rucker MD - Last Filed: 09/07/24 12:13>
--- NOTE | 2024-09-06 13:59 | ECG_ITS ---
Test Date: 2024-09-06 14:27:50 Measurements Intervals [place] Rate: 98 P: 48 WV: 159 QRS: 33 QRSD: 93 T: 30 QT: 341 QTc: 436 Interpretive Statements SINUS RHYTHM POSSIBLE LEFT ATRIAL ENLARGEMENT [-0.1mV P-WAVE IN V1/V2] INCOMPLETE RIGHT BUNDLE BRANCH BLOCK [90+ ms QRS DURATION, TERMINAL R IN V1/V2, 40+ ms S IN I/aVL/V4/V5/V6] No previous ECG available for comparison Electronically Signed On 09-08-2024 22:35:09 CDT by Kishore Brar M.D.
--- NOTE | 2024-09-06 14:00 | PC.NURSE ---
Patient has intellectual delay per mother. Patient is not able to comprehend [place] scale questions. Family states patient has never made comments about hurting herself or actions.
--- OUTSIDE RECORDS SUMMARY | 2024-09-06 14:07 | XMS_ITS | Clinical Summary ---
Author Organization [facility] Address [address] [place] [address] Care Team Providers Care Interior Design Program Chair Name Role Phone Kan Gordillo MD Primary Care Provider [phone] Source Comments [facility],non-owned Affiliates and Associated Physician Practices is amultiple site organization consisting of ambulatory clinics and hospital sitesin [place], [place]. This disclosure is being madepursuant to the Care Everywhere program and may not contain all information available regarding this patient. Last updated 17.[facility] Allergies No known active allergies Medications * [...] on file Legal Sex Female 6:58 AM [employer] Gender Identity Not on file Sexual Orientation [...] age to complete this topic Care Teams Interior Design Program Chair Relationship Specialty Start Date End Date Kan Gordillo MD [address] [place] [address] PCP - General 12/09/10
--- OUTSIDE RECORDS SUMMARY | 2024-09-06 14:08 | XMS_ITS | Clinical Summary ---
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 pH may affect urinary stone formation. For example, urine pH below 6.0 may help reduce the tendency for calcium phosphate stones and pH greater than 6.0 may reduce the tendency for uric acid stone formation. Source: [facility] Current Interpretive Data was last revised [...] CDT Cammy AGUILAR LAB MICROBIOLOGY - GENERAL AMARILLOBeatrice [facility] Final Result KATHRIN LUJAN ([place]) 1 [facility] Department [place] [address] * (ABNORMAL) Urinalysis, microscopic only (08/04/2024 12:16 [...] AGUILAR LAB URINE ORDERABLES Final Resu lt NONAIAX [facility] [place] 1 [facility] Department [place] [address] * CT Head WO Contrast [...] Rena Ramos M.D. SN: SN Report ID: [id number] Reading Location: [id number] Procedure Note Rena Ramos MD - 08/03/2024 [...] by Rena Ramos M.D. SN: Report ID: [id number] Reading Location: [place] [address] PROCEDURES Final Result [...] Final Resu lt KATHRIN [facility] [place]) 1 [facility] Department [place] [address] * (ABNORMAL) Differential, auto (08/03/2024 9:26 PM [...] Neutrophil pct 76.1 % CERNE R [facility] ([place]) Comment: Interpretive Data Percent cell count reference ranges are not reported, since discordance with absolute values may lead to misinterpretation of CBC data. Current Interpretive Data was last revised on 2017. Imm gran pct 0.3 % CERNER [facility] ([place]) Comment: Interpretive Data Percent cell count reference [...] 2017. Monocyte pct 7.6 % [facility] ([place]) Comment: Interpretive Data Percent cell count reference ranges are not reported, since discordance with absolute values may lead to misinterpretation of CBC data. Current Interpretive Data was last revised on 2017. Eosinophil pct 0.1 % [facility] ([place]) Comment: Interpretive Data Percent cell count reference [...] Final Resu lt KATHRIN LUJAN ([place] 1 [facility] [place] [address] * Thyroid Function [place] (08/03/2024 9:26 PM CDT) Pathologist [facility] TSH 1.97 0.30 - 4.20 mcIUnit/mL Blood 08/03/2024 9:26 PM CDT 08/03/2024 9:36 PM CDT Cammy AGUILAR LAB BLOOD ORDERABLES Final Resu lt Performing Organization Address City/[facility]/ZIP Co de Phone Number KATHRIN LUJAN ([place] 1 [facility] [place] [address] * (ABNORMAL) CBC with auto differential (08/03/2024 [...] CV 12.8 11.1 - 14.9 % KATHRIN [facility] ([place]) RDW SD 44.1 35.7 - 48.1 fL KATHRIN [facility] ([place]) NRBC abs 0.00 0.00 - 0.01 K/cumm KATHRIN LUJAN ([place]) Blood 08/03/2024 9:26 PM CDT 08/03/2024 9:36 PM CDT Cammy AGUILAR LAB BLOOD ORDERABLES Final Resu lt Performing Organization Address City/[facility]/ZIP Co de Phone Number KATHRIN LUJAN ([place]) 1 [facility] [place] [address] * Ethanol (08/03/2024 9:26 PM CDT) Ethanol <10 <=10 mg/dL Comment: Interpretive Data Legal limit of intoxication > or = 80 mg/dL Levels > or = 400 mg/dL are potentially TOXIC. Current interpretive data was last revised on 2018. Blood 08/03/2024 9:26 PM CDT 08/03/2024 9:36 PM CDT Cammy AGUILAR LAB BLOOD ORDERABLES Final Resu lt Performing Organization Address City/[facility]/ZIP Co de Phone Number KATHRIN LUJAN ([place]) 1 [facility] [place] [address] * Acetaminophen level (08/03/2024 9:26 PM CDT) [...] after ingestion Consult toxicology or poison control ([phone]) for unknown ingestion time. Current interpretive data was last revised 2022. Blood 08/03/2024 9:26 PM CDT 08/03/2024 9:36 PM CDT [facility] LAB BLOOD ORDERABLES Final Resu lt Performing Organization Address City/[facility]/ZIP Co de Phone Number KATHRIN LUJAN ([place]) 1 [facility] [place] [address] * Salicylate level (08/03/2024 9:26 PM CDT) Salicylate <5.0 <=5.0 mg/dL Comment: Interpretive Data Toxic: 30 mg/dL or greater. Current interpretive data was last revised 2022. Blood 08/03/2024 9:26 PM CDT 08/03/2024 9:36 PM CDT [facility] LAB BLOOD ORDERABLES Final Resu lt Performing Organization Address City/[facility] Co de Phone Number KATHRIN LUJAN ([place]) 1 [facility] [place] [address] * Comprehensive metabolic panel (08/03/2024 9:26 PM CDT) Sodium 141 135 - 145 mmol/L Potassium, pl 4.0 3.3 - 4.9 mmol/L [facility] ([place]) Chloride 105 97 - 110 mmol/L [facility] ([place]) CO2 22 22 - 32 mmol/L [facility] ([place]) Anion gap 15 2 - 15 mmol/L [facility] ([place]) BUN 9 6 - 25 mg/dL [facility] ([place]) Creatinine 0.81 0.60 - 1.10 mg/dL [facility] ([place]) Glucose 93 70 - 199 mg/dL [facility] ([place]) Comment: Interpretive Data Fasting glucose >/= [...] Final Resu lt KATHRIN LUJAN ([place]) 1 [facility] Department [place] [address] from Last 3 Months Insurance [facility] CHOICE OOS BLUE ACC CHOICE OOS AETNA [facility] [place] Care Teams Striper Machine Relationship Specialty Start Date End Date Kan Gordillo MD [address] [place] [id number] PCP - General 06/02/16
--- OUTSIDE RECORDS SUMMARY | 2024-09-06 14:08 | XMS_ITS | Referral Summary ---
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 Source: [facility] [employer] Current Interpretive Data was last revised on [...] ORDE RABLES Final Result Performing Organization Address [facility] de Phone Number KATHRIN LUJAN ([place]) 1 [facility] [place] [address] * (ABNORMAL) Urinalysis, microscopic only (08/04/2024 12:16 AM CDT) WBC, ur 6-10(A) 0 - 5 /HPF RBC, ur >50(A) 0 - 2 /HPF KATHRIN LUJAN ([place]) Epithelial cells, squamous, ur 1-5 0 - 5 /HPF KATHRIN [facility] ([place]) Mucous, ur Present(A) CERNER Bola ([place]) Culture Reflex Comment Reflex conditions for urine culture (WBC >10) not met. KATHRIN LUJAN ([place]) Urine 08/04/2024 12:1 6 AM CDT 08/04/2024 12:17 AM CDT Cammy AGUILAR LAB URINE ORDERABLES Final Resu lt Performing Organization Address [facility] de Phone Number KATHRIN LUJAN ([place]) 1 [facility] [place] [address] * CT Head WO Contrast (08/03/2024 9:50 [...] by Rena Ramos M.D. SN: Report ID: [id number] Reading Location: [id number] Procedure Note Rena Ramos MD - 08/03/2024 [...] by Rena Ramos M.D. SN: Report ID: [id number] Reading Location: [id number] Cammy AGUILAR [facility] PROCEDURES Final Result * eGFR (08/03/2024 [...] LAB BLOOD ORDERABLES Final Resu lt KATHRIN [facility] ([place]) 1 [facility] Department [place] [address] * (ABNORMAL) Differential, auto (08/03/2024 [...] Final Resu lt NONAJOSIAS LUJAN ([place]) 1 [facility] [place] [address] * Thyroid Function [place] (08/03/2024 9:26 PM CDT) TSH 1.97 0.30 - 4.20 mcIUnit/mL Blood 08/03/2024 9:26 PM CDT 08/03/2024 9:36 PM CDT us Cammy AGUILAR LAB BLOOD ORDERABLES Final Resu lt KATHRIN LUJAN ([place]) 1 [facility] [place] [address] * (ABNORMAL) CBC with auto differential (08/03/2024 [...] Final Resu lt KATHRIN LUJAN ([place]) 1 [facility] Department [place] [address] * Ethanol (08/03/2024 9:26 PM CDT) Ethanol <10 <=10 mg/dL Comment: Interpretive Data Legal limit of intoxication > or = 80 mg/dL Levels > or = 400 mg/dL are potentially TOXIC. Current interpretive data was last revised on 2018. Blood 08/03/2024 9:26 PM CDT 08/03/2024 9:36 PM CDT Cammy AGUILAR LAB BLOOD ORDERABLES Final Resu lt Performing Organization Address [facility] Co de Phone Number KATHRIN LUJAN ([place]) 1 [facility] [place] [address] * Acetaminophen level (08/03/2024 9:26 PM CDT) [...] after ingestion Consult toxicology or poison control ([phone]) for unknown ingestion time. Current interpretive data was last revised 2022. Blood 08/03/2024 9:26 PM CDT 08/03/2024 9:36 PM CDT Cammy AGUILAR LAB BLOOD ORDERABLES Final Resu lt Performing Organization Address [facility] Co de Phone Number KATHRIN [facility] ([place]) 1 [facility] [place] [address] * Salicylate level (08/03/2024 9:26 PM CDT) Salicylate <5.0 <=5.0 mg/dL Comment: Interpretive Data Toxic: 30 mg/dL or greater. Current interpretive data was last revised 2022. Blood 08/03/2024 9:26 PM CDT 08/03/2024 9:36 PM CDT us Cammy AGUILAR LAB BLOOD ORDERABLES Final Resu lt [facility]ATHRIN [facility] ([place]) 1 [facility] Department [place] [address] * Comprehensive metabolic panel (08/03/2024 9:26 PM [...] Final Resu lt [facility]ER [facility] ([place]) 1 [facility] Department of Laboratories [place] [phone] from Last 3 Months Insurance [facility] CHOICE OOS [facility] CHOICE OOS [employer] [facility] [place] [place] Care Teams Copper Roller Handler Printing Relationship Specialty Start Date End Date Kan Gordillo MD [address] [place] [id number] PCP - General 06/02/16
[2024-09-06 14:24] LABS: Hematocrit 40.7 % (35.0-49.0); Hemoglobin 13.4 g/dL (12.0-15.0); Immature Granulocyte Percent A 0.3 % (0.0-0.0); Lymphocytes Absolute Auto 2.11 K/mm3 (1.10-4.50); Mean Corpuscular HGB Conc 32.9 g/dL (32-36); Mean Corpuscular Hemoglobin 30.9 pg (27.0-31.0); Mean Corpuscular Volume 93.8 fL (78.0-102.0); Nucleated Red Blood Cells Absolute Auto 0.00 K/mm3 (0.00-0.00); Nucleated Red Blood Cells Perc 0.0 % (0-0.0); Platelet Count Result 253 K/mm3 (150-420); Red Blood Count 4.34 M/mm3 (4.20-5.40); White Blood Count 8.9 K/mm3 (4.8-10.8)
[2024-09-06 14:25] LABS: Add Urine Microscopic? YES; Appearance Urine Clear (Clear); Glucose Urine UA Negative (Negative); Leukocyte Esterase Ur Trace LEU/UL (Negative); Nitrate Urine Negative (Negative); Specific Grav Ur 1.020 (1.010-1.020)
[2024-09-06 14:40] LABS: Acetaminophen < 10 ug/mL (10-30); Salicylate < 1.0 mg/dL (2-20)
[2024-09-06 14:42] LABS: Pregnancy On Board Control Positive
[2024-09-06 14:45] LABS: Cannabinoid Screen Urine Negative (Negative)
[2024-09-06 15:25] LABS: Anion Gap 4 mmol/L (4-12); Calcium 9.0 mg/dL (8.4-10.2); Carbon Dioxide 28 mmol/L (22-30); Chloride 108 mmol/L (98-107); Estimated CRCL calculation 91 ml/min; Estimated Glomerular Filt Rate > 60; Glucose 89 mg/dL (65-110); Potassium 4.3 mmol/L (3.4-5.0); Sodium 140 mmol/L (137-145)
[2024-09-06 15:26] LABS: Alanine Aminotransferase 13 U/L (6-35); Albumin Level 4.3 g/dL (3.5-5.1); Alkaline Phosphatase 52 U/L (38-126); Aspartate Amino Transferase 26 U/L (14-36); Bilirubin,Total 0.5 mg/dL (0.2-1.3); Blood Urea Nitrogen 12 mg/dL (7-17); Osmolality Calculated 288 mOsm/kg (285-295); Total Protein 7.7 g/dL (6.3-8.2)
--- NOTE | 2024-09-06 15:51 | PC.NURSE ---
Per ERP. Dr. Geronimo, patient is medically cleared, [facility] called for Evaluation.
[2024-09-06 17:13] LABS: Thyroid Stimulating Hormone 1.680 uIU/mL (0.465-4.680)
--- NOTE | 2024-09-06 17:13 | PC.NURSE ---
An billingsley speaking with parents at this time.
[2024-09-06 17:25] VITALS: BP 106/74; PULSE 93; RESP 17; O2SAT 98
--- NOTE | 2024-09-06 19:38 | PC.NURSE ---
father updated at this time.
[2024-09-06 21:15] VITALS: BP 143/98; PULSE 100; RESP 18; TEMP 35.7; O2SAT 100
[2024-09-07 00:06] VITALS: BP 132/78; PULSE 89; RESP 20; O2SAT 99
[2024-09-07 06:32] VITALS: BP 129/94; PULSE 85; RESP 16; TEMP 35.8; O2SAT 100
--- NOTE | 2024-09-07 08:23 | PC.NURSE ---
Patient provided breakfast tray
--- NOTE | 2024-09-07 09:59 | PC.NURSE ---
RN attempted to reach mother regarding home medication, no answer, left message to call back.
--- NOTE | 2024-09-07 10:03 | PC.NURSE ---
[facility], per staff and supervisor finishing room patient can be discharge, facilities are deflecting due to acuity. Family will be contacted by Angeles from [employer] [facility] for update.
[2024-09-07 10:11] VITALS: BP 102/71; PULSE 83; RESP 18; TEMP 36.6; O2SAT 100
[2024-09-07] MEDS: LORazepam (*CRX) 1 MG TABLET PO (10:34)
[2024-09-07 11:43] VITALS: BP 102/71; PULSE 83; RESP 18; TEMP 36.6; O2SAT 100
--- NOTE | 2024-09-09 13:10 | PC.NURSE ---
urine culture final no isolated organism
== END 2024-09-07 11:43 | disposition home or self-care (01) ==
PROVIDERS: Internal Medicine Critical Care Medicine; Emergency Provider Emergency Medicine; PCP Nurse Practitioner Family
DX: F39 Unspecified mood [affective] disorder (principal); N30.00 Acute cystitis without hematuria; I10 Essential (primary) hypertension; E78.5 Hyperlipidemia, unspecified
CPT/HCPCS: 36415; 80053; 80143; 80179; 80307; 81001; 81025; 82077; 84443; 85025; 87086; 87088; 93005; 99284; A9270

== ENCOUNTER 2024-11-18 18:41 | Emergency (ER) | payer OTHER, SELFPAY ==
[2024-11-18 18:41] VITALS: PULSE 120; RESP 20; TEMP 36.5; O2SAT 98
--- OUTSIDE RECORDS SUMMARY | 2024-11-18 18:50 | XMS_ITS | Clinical Summary ---
Author Organization [facility] Address [address] [place] [address] Care Team Providers Care Donor Services Manager Name Role Phone Kan Gordillo MD Primary Care Provider Source Comments [facility],non-owned Affiliates and Associated Physician Practices is amultiple site organization consisting of ambulatory clinics and hospital sitesin [place], [place], [place] and [place]. This disclosure is being madepursuant to the Care Everywhere program and may not contain all information available regarding this patient. 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
--- OUTSIDE RECORDS SUMMARY | 2024-11-18 18:50 | XMS_ITS | Clinical Summary ---
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 Gender Identity Not on file Sexual Orientation [...] series) 09/16/2004 Regular Well Visit/Exam 18-64 09/16/2009 HPV Vaccines (1 - 3-dose SCDM series) 09/16/2018 Influenza Vaccine (#1) 2024 Hepatitis B Screening Completed 10/17/2001 , 05/23/2001, 04/25/2001 Pneumococcal vaccine <65 Aged Out No longer eligible based on patient's age to complete this topic Insurance [facility] CHOICE OOS [facility] CHOICE OOS AETNA [facility] Care Teams Hairpiece Stylist Relationship Specialty Start Date End Date Kan Gordillo MD [address] [place] [address], [place] [address] PCP - General 06/02/16
[2024-11-18 19:07] VITALS: BP 147/93
--- OUTSIDE RECORDS SUMMARY | 2024-11-18 19:28 | XMS_ITS | Clinical Summary ---
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
--- NOTE | 2024-11-18 20:10 | ED_ITS ---
HPI - General Adult General Chief complaint: Unspecified Stated complaint: medication reaction Time Seen by Provider: 11/18/24 19:05 Source: patient and family Mode of arrival: ambulatory Limitations: no limitations History of Present Illness HPI narrative: Patient is a 34-year-old female with developmental delay mentally a childhood age here with concerns of weaning off of Abilify. She is having some fatigue. She was seen at another emergency room 3 days ago and they did a full workup with labs and urine and gave her 2 L of fluid. They discharged her home with no new diagnosis. She is going to [place] to see a psychiatrist to assist with her mental state. Psychiatrist is out of town so they have come to different emergency rooms to seek discussion. They also wanted something for sleep. They also wanted us to adjust her psychiatric medicine. It was explained to the family that we do not do sleeping medication typically or psychiatric medication adjustments. Baseline seizure disorder. Onset (ago): week(s) (2-3 since starting Abilify and now weaning Abilify) Radiation: non-radiation Severity: mild Severity scale (1-10): 1 Quality: other (No pain) Pain Consistency: other (No pain) Relieving factors: none Exacerbating factors: none Associated symptoms: loss of appetite, malaise and weakness Treatments prior to arrival: none (Weaning Abilify from 10 mg to 5 mg and further weaning to come off this medication (psychiatrist following)) Related Data Home Medications ?Medication ?Instructions ?Recorded ?Confirmed ?Last Taken ?Type divalproex 125 mg capsule,delayed 125 mg PO TID 11/07/23 Unknown History release sprinkle (Depakote Sprinkles) Allergies Allergy/AdvReac Type Severity Reaction Status Date / Time No Known Allergies Allergy Verified 09/06/24 13:31 Review of Systems Review of Systems: All systems reviewed & are unremarkable except as noted in HPI and below Constitutional: Constitutional: Reports no additional constitutional complaints Eyes: Eyes: Reports no additional eye complaints ENT: Reports system reviewed and no additional complaints, except as documented Cardiovascular: Cardiovascular: Reports no additional cardiovascular complaints Respiratory: Respiratory: Reports no additional respiratory complaints Gastrointestinal: Gastrointestinal: Reports no additional gastrointestinal complaints Genitourinary: Genitourinary: Reports no additional female genitourinary complaints Musculoskeletal: Musculoskeletal: Reports no additional musculoskeletal complaints Integumentary/Breasts: Skin/Breast: Reports system reviewed and no additional complaints, except as docu Neurologic: Reports system reviewed and no additional complaints, except as documented Psychiatric: Psychiatric: Reports no additional psychiatric complaints Endocrine: Endocrine: Reports no additional endocrine complaints Hematologic/Lymphatic: Hematologic/Lymphatic: Reports no additional hematologic/lymphatic complaints Allergic/Immunologic: Allergic/Immunologic: Reports no additional allergic/immunologic complaints PMFSH Past Medical History Medical History (Updated 11/18/24 @ 22:02 by Jimmie Rucker MD) Moderate intellectual disabilities Hyperlipidemia HTN (hypertension) Seizure disorder Surgical History Surgical History [place] teeth removed Family History Family History Grandparent Lung cancer Social History Social History Smoking status: Never smoker Tobacco type: cigarettes Exam Const: General: healthy appearing Nutritional Appearance: well nourished Orientation/consciousness: patient oriented x3 HENMT: Head: normal to inspection Ears: external ears normal Face/Nose/Sinus: Normal external nose present Eyes: Conjunctivae: conjunctivae normal Pupils: Equal, round and reactive pupils present EOM: EOMs intact bilaterally Neck: Neck: normal visual inspection Chest: Chest palpation & inspection: normal inspection of the chest Resp: Effort & Inspection: normal respiratory effort and not labored Auscultation: clear to auscultation bilaterally and no crackles Cardio: Rate: regular rate Rhythm: regular rhythm Heart sounds: no murmu rs GI: Inspection: non-distended GI Palp: Yes Soft to palpation and No Tenderness to palpation present (GI) Auscultation: normal bowel sounds : General: Yes bladder normal to palpation Back/Spine/Pelvis: Back: no CVA tenderness Skin: General skin exam: normal color Rashes: no rashes Wounds: no wounds Neuro: General: patient oriented x3, moves all extremities and no meningeal signs Extrem: General: normal to inspection Psych: Mental Status: mental status grossly abnormal Affect: No normal affect Attitude: not cooperative Other: Patient was at baseline mental status which is around childhood years mentally; patient throws temper tantrums; the Abilify was working well but she was having side effects so they have weaned off this medication almost at this time; no suicide or homicide ideations Course Vital Signs Vital signs: Vital Signs Temperature 36.5 C 11/18/24 18:41 Pulse Rate 120 H 11/18/24 18:41 Respiratory Rate 20 11/18/24 18:41 Pulse Oximetry 98 11/18/24 18:41 Oxygen Delivery Room Air 11/18/24 18:41 Temperature 36.5 C 11/18/24 18:41 Pulse Rate 120 H 11/18/24 18:41 Respiratory Rate 20 11/18/24 18:41 Blood Pressure 147/93 H 11/18/24 19:07 Pulse Oximetry 98 11/18/24 18:41 Oxygen Delivery Room Air 11/18/24 18:41 Medical Decision Making MDM Narrative Medical decision making narrative: Patient is a 34-year-old female with mental developmental delay chronically and has anxiety here with not feeling good while weaning Abilify. We will check some labs and urine. Family decided to take her home as she was acting better and more like herself in time and signed AMA. Family are POA for the patient and they have the medical decision capacity to sign AMA at this time. Both mother and father are AAO x4. Risks and benefits about leaving are noted and understood by the family. Vital Signs Vital Signs: Vital Signs Temperature 36.5 C 11/18/24 18:41 Pulse Rate 120 H 11/18/24 18:41 Respiratory Rate 20 11/18/24 18:41 Pulse Oximetry 98 11/18/24 18:41 Oxygen Delivery Room Air 11/18/24 18:41 Temperature 36.5 C 11/18/24 18:41 Pulse Rate 120 H 11/18/24 18:41 Respiratory Rate 20 11/18/24 18:41 Blood Pressure 147/93 H 11/18/24 19:07 Pulse Oximetry 98 11/18/24 18:41 Oxygen Delivery Room Air 11/18/24 18:41 Lab Data Lab results reviewed: Yes I reviewed the patient's lab results. Discharge Plan Discharge Clinical Impression: Medication side effect, Seizure disorder Adjustment disorder Qualifiers: Adjustment disorder type: unspecified type Qualified Code(s): F43.20 - Adjustment disorder, unspecified Patient Disposition: Left Against Medical Advice Condition: Stable Patient Language: Liberian Prescriptions: No Action divalproex [Depakote Sprinkles] 125 mg capsule, delayed rel sprinkle 125 mg PO TID Rx Instructions: take 4 tablets QAM take 4 tablets HS escitalopram oxalate 5 mg/5 mL solution See Rx Instructions .ROUTE .COMPLEX Qty: 300 2RF Dose Instruction: TAKE 10 ML BY MOUTH DAILY Rx Instructions: TAKE 10 ML BY MOUTH DAILY cephalexin 250 mg/5 mL suspension for reconstitution 500 mg PO BID 5 Days Qty: 100 0RF Follow-up/Referrals: Eliana Humphrey NP [Primary Care Provider, Family Practice] Time of Disposition: 20:16
--- NOTE | 2024-11-18 20:15 | PC.NURSE ---
PARENTS REQUESTING TO TAKE PATIENT HOME. FATHER SIGNED AMA FORM. PARENTS TO REACH OUT TO PSYCHIATRIST IN THE AM FOR FURTHER MEDICATION INSTRUCTIONS.
--- NOTE | 2024-11-21 21:08 | PC.NURSE ---
[facility]20/24. ED RECORDS FAXED
== END 2024-11-18 20:22 | disposition left against medical advice (07) ==
PROVIDERS: Emergency Provider Emergency Medicine; PCP Nurse Practitioner Family
DX: R53.83 Other fatigue (principal); R53.1 Weakness; T43.596A Underdosing of other antipsychotics and neuroleptics, initial encounter; Z91.128 Patient's intentional underdosing of medication regimen for other reason; F43.20 Adjustment disorder, unspecified; G40.909 Epilepsy, unspecified, not intractable, without status epilepticus; E78.5 Hyperlipidemia, unspecified; I10 Essential (primary) hypertension
CPT/HCPCS: 99281

== ENCOUNTER 2024-12-09 13:05 | Emergency (ER) | payer OTHER, SELFPAY ==
[2024-12-09 13:05] VITALS: BP 114/79; PULSE 103; RESP 16; TEMP 36.7; O2SAT 99
--- NOTE | 2024-12-09 13:13 | ED.GENADULT ---
HPI - General Adult General Chief complaint: Unspecified Stated complaint: nausea Time Seen by Provider: 12/09/24 13:13 History of Present Illness HPI narrative: 34-year-old female patient with known history of mood disorder and adjustment disorder are multiple psychiatric problems is in the ER wanting to be admitted. She is offering complaints of nausea. The patient is not a good historian. She apparently lives with her family and was taken to the doctor's office this morning by the father and patient apparently refused to see the doctor and walked over to local restaurant and asked them to call 911 and be transported to the hospital. Per family the patient has been recently started on Abilify IV she did not tolerate very well however she takes Ativan and has not had today's dose. Patient offers no other complaints and is perpetually requesting to stay here tonight. The patient offers no thoughts of self-harm or harm to others. Related Data Home Medications ?Medication ?Instructions ?Recorded ?Confirmed ?Last Taken ?Type divalproex 125 mg capsule,delayed 125 mg PO TID 08/07/22 12/09/24 Unknown History release sprinkle (Depakote Sprinkles) guanfacine 1 mg tablet,extended mg PO 12/09/24 Unknown History release 24 hr hydroxyzine HCl 10 mg tablet mg 12/09/24 Unknown History lorazepam 2 mg/mL oral concentrate mg 12/09/24 Unknown History trazodone 50 mg tablet mg 12/09/24 Unknown History Allergies Allergy/AdvReac Type Severity Reaction Status Date / Time No Known Allergies Allergy Verified 12/09/24 13:37 Review of Systems Review of Systems: All systems reviewed & are unremarkable except as noted in HPI and below PMFSH Past Medical History Medical History (Updated 12/09/24 @ 13:58 by Kayla Crowell MD) Moderate intellectual disabilities Hyperlipidemia HTN (hypertension) Seizure disorder Surgical History Surgical History [place] teeth removed Family History Family History Grandparent Lung cancer Social History Social History Smoking status: Never smoker Tobacco type: cigarettes Exam Const: General: no acute distress, well developed, alert, awake and Physically active HENMT: Head: normal to inspection Face/Nose/Sinus: Normal external nose present Face and sinus: normal facial exam Mouth: Yes Normal oral and palatal mucosa present Eyes: General: appearance normal, both eyes and all related structures Pupils: Equal, round and reactive pupils present EOM: EOMs intact bilaterally Chest: Chest palpation & inspection: normal inspection of the chest Resp: Effort & Inspection: normal respiratory effort and able to speak in complete sentences Cardio: Jugular venous distension: no JVD Rate: regular rate Rhythm: regular rhythm GI: Inspection: normal to inspection Auscultation: normal bowel sounds Skin: General skin exam: normal color, no rashes or lesions noted, elasticity normal and turgor normal Neuro: General: oriented to person, oriented to place and oriented to time Extrem: General: normal to inspection, full ROM and capillary refill normal Psych: Appearance: grossly normal and well kempt Mental Status: mental status grossly normal Speech and movement: Normal speech and movement present Affect: Anxious affect present Course Course Emergency Course: Uneventful course in the ER. The patient did take the medications and is being discharged with her family. Vital Signs Vital signs: Vital Signs Temperature 36.7 C 12/09/24 13:05 Pulse Rate 103 H 12/09/24 13:05 Respiratory Rate 16 12/09/24 13:05 Blood Pressure 114/79 12/09/24 13:05 Pulse Oximetry 99 12/09/24 13:05 Oxygen Delivery Room Air 12/09/24 13:05 Temperature 36.7 C 12/09/24 13:05 Pulse Rate 92 12/09/24 14:25 Respiratory Rate 18 12/09/24 14:25 Blood Pressure 126/83 12/09/24 14:25 Pulse Oximetry 100 12/09/24 14:25 Oxygen Delivery Room Air 12/09/24 14:25 Medical Decision Making MDM Narrative Medical decision making narrative: 34-year-old female patient with known history of intellectual disability as well as the anxiety and mood disorder is here with anxiety. Detailed H&P is documented. Patient is not offering any thoughts of self-harm or harm to others. She is agreeable to taking an injection of Zofran and Ativan. The patient is already on 0.5 mg of Ativan but has not had the dose today. Family is here and the plan is to discharge the patient home with the family Vital Signs Vital Signs: Vital Signs Temperature 36.7 C 12/09/24 13:05 Pulse Rate 103 H 12/09/24 13:05 Respiratory Rate 16 12/09/24 13:05 Blood Pressure 114/79 12/09/24 13:05 Pulse Oximetry 99 12/09/24 13:05 Oxygen Delivery Room Air 12/09/24 13:05 Temperature 36.7 C 12/09/24 13:05 Pulse Rate 92 12/09/24 14:25 Respiratory Rate 18 12/09/24 14:25 Blood Pressure 126/83 12/09/24 14:25 Pulse Oximetry 100 12/09/24 14:25 Oxygen Delivery Room Air 12/09/24 14:25 Discharge Plan Discharge Clinical Impression: Moderate intellectual disabilities, Anxiety Patient Disposition: Home Condition: Stable Instructions: Anxiety (ED) Additional Instructions: Home with the family Continue all routine medications Keep the follow up with the PCP Patient Language: Spanish Prescriptions: No Action trazodone 50 mg tablet hydroxyzine HCl 10 mg tablet lorazepam 2 mg/mL concentrate guanfacine 1 mg tablet extended release 24 hr PO divalproex [Depakote Sprinkles] 125 mg capsule, delayed rel sprinkle 125 mg PO TID Rx Instructions: take 4 tablets QAM take 4 tablets HS Follow-up/Referrals: Eliana Humphrey NP [Primary Care Provider, Family Practice]
--- NOTE | 2024-12-09 13:50 | PC.NURSE ---
pt unable to take pills per baseline. Pt agreeable to IM dose of ativan due to liquid ativan unavailable from home med list.
[2024-12-09] MEDS: LORazepam INJ (*CRX) 2 MG/ML VIAL 1 MG IM (13:56)
--- OUTSIDE RECORDS SUMMARY | 2024-12-09 13:57 | XMS_ITS | Clinical Summary ---
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 mcg/mL: Susceptible Comment:Aminoglycosides shou ld not be used as monotherapy for infections outside the urinary tract. Consultation with an infectious diseases specialist is recommended. Susannah Bacon MD MICROBIOLOGY - GENERAL ORDERABLE S Final Result [facility] [employer] [facility]# [id number] [address] [facility] [address] * PROTIME-INR (11/26/2024 5:41 AM CDT) PROTIME 14.2 12.7 - 15.1 Seconds 11/26/2024 6:25 AM CDT [facility] [employer] [facility] INR 1.1 0.9 - 1.1 11/26/2024 6:25 AM CDT [facility] Blood Venipuncture / Unknown 11/26/2024 5:41 AM CDT 11/26/2024 6:02 AM CDT Narrative [facility] - 11/26/2024 6:25 AM CDT INR Therapeutic Range: Adult: 2.0 - 3.0 for pulmonary embolism or prophylaxis against venous thrombosis or systemic embolization. 2.0 - 3.0 for patients with tissue heart valves. 2.5 - 3.5 for patients with mechanical heart valves or post PR. Pediatric (12 years and under): 1.5 - 3.0 Although the target range in children is not well established, INR values of 1.5 - 3.0 are recommended for most patients. Higher values have been used in children with prosthetic cardiac valves and hereditary clotting disorders. [place] (<3 days) therapeutic ranges have not been established. Jazmin Bone MD HEMATOLOGY ORDERABLES Final R esult Performing Organization Address City/[facility]/ZIP Co de Phone Number [facility] [employer] [facility] CLIL# [id number] [address] [place] [address] * LACTIC ACID (11/26/2024 12:48 AM CDT) LACTIC ACID 0.9 <=2.0 mmol/L 11/26/2024 1:21 AM CDT [facility] Blood Venipuncture / Unknown 11/26/2024 12:48 AM CDT 11/26/2024 12:52 AM CDT Jazmin Bone MD CHEMISTRY ORDERABLES Final Re sult [facility] [employer] [facility] CLIA# [id number] [address] [place] [address] [place] [address] from Last 3 Months Insurance [facility] MEDICAID RX [facility] Commercial [employer] [facility] [place] MEDICA[place] Advance Directives For more information, please contact: [phone] * Full Code (Latest Code Status on File) Date Activated Date Inactivated Comments 11/26/2024 12:02 AM 12/02/2024 9:38 PM Care Teams Welt Edge Rounder Relationship Specialty Start Date End Date Eliana Humphrey, MSN, SURFACE SUPERVISOR-BC [address] [place] [address] Nurse Practitioner Nurse Practitioner Family 11/24/24
--- OUTSIDE RECORDS SUMMARY | 2024-12-09 13:57 | XMS_ITS | Clinical Summary ---
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
--- OUTSIDE RECORDS SUMMARY | 2024-12-09 13:57 | XMS_ITS | Clinical Summary ---
Author Organization [email or web address] Address [address] [place] [address] Care Team Providers Care Metal Storage Worker Name Role Phone Kan Gordillo MD Primary Care Provider [phone] Source Comments [email or web address],non-owned Affiliates and Associated Physician Practices is amultiple site organization consisting of ambulatory clinics and hospital sitesin [place], [place], [place] and [place]. This disclosure is being madepursuant to the Care Everywhere program and may not contain all information available regarding this patient. 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
[2024-12-09 14:25] VITALS: BP 126/83; PULSE 92; RESP 18; O2SAT 100
--- NOTE | 2024-12-09 14:27 | PC.NURSE ---
[place] [employer] notified of need for possible assistance in discharging pt to father's vehicle.
--- OUTSIDE RECORDS SUMMARY | 2024-12-09 14:31 | XMS_ITS | Clinical Summary ---
Author Organization [facility] Address [address] [place] [address] Phone Care Team Providers Care Senior Designer Name Role Phone Unavailable Primary Care Provider [...] - 12/02/2024 6:45 PM CDT Hospital Encounter [facility] Neurosurgery [address] [place] [address] Gideon Raya MD Joshi, Ashwani [...] WITH DIFFERENTIAL Stat 11/26/2024 12:48 AM CDT CANDY SPREADER EVALUATE AND TREAT Routine 12:46 AM CDT POC GLUCOSE Routine 11/25/2024 9:48 PM CDT from Last 3 Months Results * (ABNORMAL) POC GLUCOSE (12/01/2024 7:23 PM CDT) Only the most recent of4 resultswithin the time period is included. [facility] GLUCOSE POC 120(H) 74 - 99 mg/dL 12/01/2024 7:23 PM CDT [facility] SPECIMEN SOURCE, GLUCOSE POC Whole Blood 12/01/2024 7:23 PM CDT [facility] Blood, whole 12/01/2024 7:23 PM CDT 12/03/2024 4:41 AM CDT Corinna Gonazlez DO POINT OF CARE TESTING Final Result [facility]# [id number] [address] [facility] [place] [address] * (ABNORMAL) CBC WITH DIFFERENTIAL (12/01/2024 5:21 AM CDT) Only the most recent of6 resultswithin the time period is included. [facility] WBC 9.4 4.0 - 9.8 K/uL 12/01/2024 6:34 AM CDT [facility] RBC 3.91 3.90 - 4.90 M/uL 12/01/2024 6:34 AM CDT [facility] HEMOGLOBIN 12.0 11.8 - 14.8 g/dL 12/01/2024 6:34 AM CDT [facility] HEMATOCRIT 37.3 35.5 - 44.0 % 12/01/2024 6:34 AM CDT [facility] MCV 95.4 82.0 - 99.0 fL 12/01/2024 6:34 AM CDT [facility] MCH 30.7 27.2 - 32.6 pg 12/01/2024 6:34 AM CDT [facility] MCHC 32.2 31.5 - 35.5 g/dL 12/01/2024 6:34 AM CDT [facility] RDW 13.4 11.5 - 14.5 % 12/01/2024 6:34 AM CDT [facility] RDW-STDEV 47.4 37.1 - 48.7 fL 12/01/2024 6:34 AM CDT [facility] [place] PLATELETS 338 140 - 350 K/uL 12/01/2024 6:34 AM CDT [facility] MPV 10.0 9.3 - 12.4 fL 12/01/2024 6:34 AM CDT [facility] [place] NEUTROPHILS 57 % 12/01/2024 6:34 AM CDT [facility] LYMPHOCYTES 22 % 12/01/2024 6:34 AM CDT [facility] MONOCYTES 17 % 12/01/2024 6:34 AM CDT [facility] EOSINOPHILS 3 % 12/01/2024 6:34 AM CDT [facility] BASOPHILS 1 % 12/01/2024 6:34 AM CDT [facility] IMMATURE GRANULOCYTES 0 % 12/01/2024 6:34 AM CDT [facility] NEUTROPHIL ABSOLUTE 5.30 1.90 - 7.00 K/uL 12/01/2024 6:34 AM CDT [facility] LYMPHOCYTE ABSOLUTE 2.06 0.70 - 4.50 K/uL 12/01/2024 6:34 AM CDT [facility] MONOCYTE ABSOLUTE 1.61(H) 0.10 - 1.30 K/uL 12/01/2024 6:34 AM CDT [facility] EOSINOPHIL ABSOLUTE 0.31 0.00 - 0.70 K/uL 12/01/2024 6:34 AM CDT [facility] BASOPHILS ABSOLUTE 0.05 0.00 - 0.20 K/uL 12/01/2024 6:34 AM CDT [facility] IMMATURE GRANULOCYTES ABSOLUTE 0.03 0.00 - 0.03 K/uL 12/01/2024 6:34 AM CDT [facility] Blood Venipuncture / Unknown 12/01/2024 5:21 AM CDT 12/01/2024 6:04 AM CDT Baldev Orr MD HEMATOLOGY ORDE RABLES Final Result Performing Organization Address City/[facility]/ZIP Co de Phone Number [facility] CLIA# [id number] [address] [place] [address] * PHOSPHORUS (12/01/2024 5:21 AM CDT) Only the most recent of5 resultswithin the time period is included. PHOSPHORUS 3.7 2.5 - 4.5 mg/dL 12/01/2024 6:59 AM CDT [facility] Blood Venipuncture / Unknown 12/01/2024 5:21 AM CDT 12/01/2024 6:04 AM CDT Baldev Orr MD CHEMISTRY ORDER DENIS Final Result Performing Organization Address City/[facility]/ZIP Co de Phone Number [facility] CLIA# [id number] [address] [place] [place] [address] * MAGNESIUM LEVEL (12/01/2024 5:21 AM CDT) Only the most recent of5 resultswithin the time period is included. MAGNESIUM 2.0 1.6 - 2.6 mg/dL 12/01/2024 6:59 AM CDT [facility] Blood Venipuncture / Unknown 12/01/2024 5:21 AM CDT 12/01/2024 6:04 AM CDT Baldev Orr MD CHEMISTRY ORDER DENIS Final Result [facility] CLIA# [id number] [address] [facility] [place] [address] * (ABNORMAL) COMPREHENSIVE METABOLIC PANEL (12/01/2024 5:21 AM CDT) Only the most recent of7 resultswithin the time period is included. SODIUM 142 136 - 145 mmol/L 12/01/2024 6:59 AM CDT [facility] POTASSIUM 3.6 3.5 - 5.0 mmol/L 12/01/2024 6:59 AM CDT [facility] [place] CHLORIDE 104 98 - 107 mmol/L 12/01/2024 6:59 AM CDT [facility] CO2 24 22 - 29 mmol/L 12/01/2024 6:59 AM CDT [facility] [place] CALCIUM 9.8 8.6 - 10.2 mg/dL 12/01/2024 6:59 AM CDT [facility] [place] BUN 15 6 - 20 mg/dL 12/01/2024 6:59 AM T [facility] [place] CREATININE 0.80 0.51 - 0.95 mg/dL 12/01/2024 6:59 AM CDT [facility] GLUCOSE 76 74 - 99 mg/dL 12/01/2024 6:59 AM T [facility] [place] TOTAL PROTEIN 6.7 6.7 - 8.6 g/dL 12/01/2024 6:59 AM CDT [facility] [place] ALBUMIN 4.1 3.5 - 5.2 g/dL 12/01/2024 6:59 AM CDT [employer] [facility] [place] BILIRUBIN TOTAL 0.6 0.0 - 1.2 mg/dL 12/01/2024 6:59 AM T [facility] 83 35 - 104 U/L 12/01/2024 6:59 AM T [facility] AST 60(H) <33 U/L 12/01/2024 6:59 AM [facility] ALT 41(H) <34 U/L 12/01/2024 6:59 AM T [facility] GFR >60 >=60 mL/min/1.7 3 sq meter 12/01/2024 6:59 AM T [facility] Comment:eGFR calculated with 2020 CKD-EPI equation. Vegetarian diet, extremely high or low muscle mass, and may affect results. Cystatin C with Glomerular Filtration Rate is a suitable alternative for these patients. ANION GAP 14 8 - 16 mmol/L 12/01/2024 6:59 AM T [facility] Blood Venipuncture / Unknown 12/01/2024 5:21 AM CDT 12/01/2024 6:04 AM CDT Narrative [facility] - 12/01/2024 6:59 AM CDT Samples containing indocyanine green cause interferences on Total and/or Direct Bilirubin and must not be measured. us Baldev Orr MD CHEMISTRY ORDER DENIS Final Result [facility]# [id number] [address] [place] [address] * EEG 24 HOUR (11/29/2024 9:28 AM CDT) Narrative Brenda Merino MD - 11/29/2024 9:28 AM CDT Brenda Merino MD 11/29/2024 2:26 PM Video-EEG Report Patient Name: Jasmin Vilalnueva [facility] Medical Record Number (MRN): [id number] Date of (): 1990 Start Time: 11/28/2024 [...] - 180 U/L 11/27/2024 11:16 AM CDT [facility] [employer] [facility] Blood Venipuncture / Unknown 11/27/2024 4:06 AM CDT 11/27/2024 4:12 AM CDT Baldev Orr MD CHEMISTRY ORDER DENIS Final Result [facility] [employer] [facility]# [id number] [address] [facility] [place] [address] * VITAMIN B12 AND FOLATE (11/26/2024 2:22 PM CDT) VITAMIN B12 361 232 - 1,245 pg/mL 11/26/2024 3:39 PM CDT [facility] Comment:It has been reported that between 5 to 10% of patients with values between 200 and 400 pg/mL may experience neuropsychiatric and hematologic abnormalities due to occult B12 deficiency. Less than 1% of patients with values above 400 pg/mL will have symptoms. FOLATE, SERUM 5.2 >4.5 ng/mL 11/26/2024 3:39 PM CDT [facility] Blood Venipuncture / Unknown 11/26/2024 2:22 PM CDT 11/26/2024 2:34 PM CDT Elisabet Garcia MD CHEMISTRY ORDERABLES Fi nal Result [facility] CLIA# [id number] [address] [facility] [place] [address] * METHYLMALONIC ACID (11/26/2024 2:22 PM CDT) METHYLMALONIC ACID 118 55 - 335 nmol/L 11/28/2024 10:39 AM CDT [facility] Comment: See Note 1 Serum methylmalonic acid [...] neural tube defects and intrauterine growth restriction. [facility] utilized Multi-Modal Decomposition (MMD) analysis to establish first and second trimester-specific MMA reference intervals in , as given below: MMA, First trimester (<13 wks gestation): 58-167 nmol/L MMA, Second trimester (13-23 wks gestation): 63-241 nmol/L Note 1 This test was developed and its analytical performance characteristics have been determined by [facility]. It has not been cleared or approved by the FDA. This assay has been validated pursuant to the CLIA regulations and is used for clinical purposes. Blood Venipuncture / Unknown 11/26/2024 2:22 PM CDT 11/26/2024 2:34 PM CDT Narrative [facility] - 11/28/2024 10:39 AM CDT Performing Organization Information: Site ID: CB Name: [facility] Address: [address] [place] [address] Director: Karthik Minor Elisabet Garcia MD CHEMISTRY ORDERABLES Fi nal Result [facility] [phone] * HOMOCYSTEINE (11/26/2024 2:22 PM CDT) HOMOCYSTEINE, SERUM 11.1 <=15.0 umol/L 11/26/2024 3:09 PM CDT [facility] Blood Venipuncture / Unknown 11/26/2024 2:22 PM CDT 11/26/2024 2:31 PM CDT Elisabet Garcia MD CHEMISTRY ORDERABLES Fi nal Result Performing Organization Address [facility] Co de Phone Number [facility] CLMD# [id number] [address] [facility] [place] [address] * AMMONIA LEVEL (11/26/2024 10:45 AM CDT) AMMONIA 39.9 11.0 - 51.0 umol/L 11/26/2024 11:32 AM CDT [facility] Blood, venous Venipuncture / Unknown 11/26/2024 10:45 AM CDT 11/26/2024 10:57 AM CDT Baldev Orr MD CHEMISTRY ORDER DENIS Final Result [facility]# [id number] [address] [place] [address] * (ABNORMAL) VALPROIC ACID LEVEL, TOTAL (11/26/2024 10:45 AM CDT) VALPROIC ACID TOTAL 41.9(L) 50.0 - 100.0 ug/mL 11/26/2024 11:30 AM CDT [facility] [employer] [facility] Comment: Valproic Acid Antiepileptic Control = 50 - 100 ug/mL Valproic Acid Manic Episode Control = 50 - 125 ug/mL Valproic Acid Toxic Level = >150 ug/mL Blood Venipuncture / Unknown 11/26/2024 10:45 AM CDT 11/26/2024 10:59 AM CDT Baldev Orr MD CHEMISTRY ORDER DENIS Final Result Performing Organization Address City/State/[facility] Co de Phone Number [facility] [employer] [facility]# [id number] [address] [place] [address] * (ABNORMAL) DRUG SCREEN, URINE (11/26/2024 5:53 AM CDT) Pathologist [facility] AMPHETAMINE QUAL, URINE Negative Negative 11/26/2024 10:41 AM CDT [facility] [employer] [facility] BARBITURATE QUAL, URINE Negative Negative 11/26/2024 10:41 AM CDT [facility] [employer] [facility] BENZODIAZEPINE QUAL, URINE Presumptive Positive(A) Negative 11/26/2024 10:41 AM CDT [facility] [employer] [facility] COCAINE QUAL URINE Negative Negative 11/26/2024 10:41 AM CDT [facility] [employer] [facility] OPIATE QUAL, URINE Negative Negative 11/26/2024 10:41 AM CDT [facility] [employer] [facility] CANNABINOIDS QUAL, URINE Negative Negative 11/26/2024 10:41 AM CDT [facility] [employer] [facility] PCP QUAL, URINE Negative Negative 10:41 AM CDT [facility] OXYCODONE QUAL, URINE Negative Negative 11/26/2024 10:41 AM [facility] METHADONE QUAL, URINE Negative Negative 11/26/2024 10:41 AM CDT [facility] FENTANYL QUAL, URINE Negative Negative 11/26/2024 10:41 AM T [facility] CREATININE, URINE 025 10:41 AM T [facility] Comment:Reference Range vari es with fluid intake and diet. Urine (Urine, indwelling ([place]) catheter) Collection / Unknown 11/26/2024 5:53 AM CDT 11/26/2024 6:10 AM CDT [facility] - 11/26/2024 10:41 AM CDT This test [...] Orr MD URINE ORDERABLE S Final Result [facility]# [id number] [address] [facility] [place] [address] * (ABNORMAL) URINALYSIS WITH REFLEX MICROSCOPIC (11/26/2024 5:53 AM CDT) COLOR UA Yellow Pale to Dark Yellow 11/26/2024 6:48 AM [facility] CLARITY UA Slightly Cloudy(A) Clear 11/26/2024 6:48 AM T [facility] SPECIFIC GRAVITY UA 1.013 1.003 - 1.035 11/26/2024 6:48 AM [facility] PH UA 6.0 5.0 - 8.0 11/26/2024 6:48 AM CDT [facility] LEUKOCYTE ESTERASE UA Negative Negative 11/26/2024 6:48 AM CDT [facility] NITRITE UA Positive(A) Negative 11/26/2024 6:48 AM CDT [facility] PROTEIN UA Negative Negative 11/26/2024 6:48 AM CDT [facility] GLUCOSE UA Negative Negative 11/26/2024 6:48 AM CDT [facility] KETONES UA Negative Negative 11/26/2024 6:48 AM CDT [employer] [facility] UROBILINOGEN UA Normal <2.0 mg/dL 6:48 AM CDT [facility] BILIRUBIN UA Negative Negative 11/26/2024 6:48 AM CDT [facility] BLOOD UA Negative Negative 11/26/2024 6:48 AM CDT [facility] WBC UA 0-2 0 - 2 /hpf 11/26/2024 6:48 AM CDT [facility] RBC UA 0-2 0 - 2 /hpf 11/26/2024 6:48 AM CDT [facility] BACTERIA UA 4+(A) Negative /hpf 11/26/2024 6:48 AM CDT [facility] Urine (Urine, indwelling (Del Valle) catheter) Collection / Unknown 11/26/2024 5:53 AM CDT 11/26/2024 6:10 AM CDT us Jazmin Bone MD URINE ORDERABLES Final Result [facility] [employer] [facility]# [id number] [address] [place] [address] * (ABNORMAL) URINE CULTURE (11/26/2024 5:53 AM CDT) CULTURE ESCHERICHIA COLI(A) CRISTOPHER MCG/ML 11/29/2024 10:11 AM CDT [facility] CULTURE 10,000-50,000 cfu/mL Normal urethral nena CRISTOPHER MCG/ML 11/29/2024 10:11 AM T [facility] Urine (Urine, indwelling ([place] Valle) catheter) Collection [...] MCG/ML <=20 mcg/mL: Susceptible Escherichia coli NITROFURANTOIN CIRSTOPHER MCG/ML <=16 mcg/mL: Susceptible Escherichia coli AMPICILLIN CRISTOPHER MCG/ML >=32 mcg/mL: Resistant Escherichia coli AMPICILLIN/ SULBACTAM CRISTOPHER MCG/ML >=32 mcg/mL: Resistant Escherichia coli PIPERACILLIN/ TAZOBACTAM CRISTOPHER MCG/ML <=4 mcg/mL: Susceptible Comment:Aminoglycosides shou ld not be used as monotherapy for infections outside the urinary tract. Consultation with an infectious diseases specialist is recommended. Susannah Bacon MD MICROBIOLOGY - GENERAL ORDERABLE S Final Result [facility] [employer] [facility]# [id number] [address] [facility] [place] [address] * PROTIME-INR (11/26/2024 5:41 AM CDT) PROTIME 14.2 12.7 - 15.1 Seconds 11/26/2024 6:25 AM CDT [facility] [employer] [facility] INR 1.1 0.9 - 1.1 11/26/2024 6:25 AM CDT [facility] Blood Venipuncture / Unknown 11/26/2024 5:41 AM CDT 11/26/2024 6:02 AM CDT Narrative [facility] - 11/26/2024 6:25 AM CDT INR Therapeutic Range: Adult: 2.0 - 3.0 for pulmonary embolism or prophylaxis against venous thrombosis or systemic embolization. 2.0 - 3.0 for patients with tissue heart valves. 2.5 - 3.5 for patients with mechanical heart valves or post GA. Pediatric (12 years and under): 1.5 - 3.0 Although the target range in children is not well established, INR values of 1.5 - 3.0 are recommended for most patients. Higher values have been used in children with prosthetic cardiac valves and hereditary clotting disorders. Ridgely (<3 days) therapeutic ranges have not been established. Jazmin Bone MD HEMATOLOGY ORDERABLES Final R esult Performing Organization Address City/[facility]/ZIP Co de Phone Number [facility] [employer] [facility] CLMD# [id number] [address] [place] [address] * LACTIC ACID (11/26/2024 12:48 AM CDT) LACTIC ACID 0.9 <=2.0 mmol/L 11/26/2024 1:21 AM CDT [facility] Blood Venipuncture / Unknown 11/26/2024 12:48 AM CDT 11/26/2024 12:52 AM CDT Jazmin Bone MD CHEMISTRY ORDERABLES Final Re sult [facility] [employer] [facility] CLIA# [id number] [address] [place] [address] from Last 3 Months Insurance [facility] MEDICAID RX [facility] Commercial [employer] [place] MEDICAID Advance Directives For more information, please contact: [phone] * Full Code (Latest Code Status on File) Date Activated Date Inactivated Comments 11/26/2024 12:02 AM 12/02/2024 9:38 PM Care Teams Senior Designer Relationship Specialty Start Date End Date Eliana Humphrey, MSN, BUILDING INSPECTOR-BC [address] [place] [address] Nurse Practitioner Nurse Practitioner Family 11/24/24
--- OUTSIDE RECORDS SUMMARY | 2024-12-09 14:31 | XMS_ITS | Clinical Summary ---
Author Organization [facility] [employer] Address [address] [place] [address] Care Team Providers Care Director Medical Surgical Name Role Phone Kan Gordillo MD Primary Care Provider [phone] Source Comments [facility] [employer],non-owned Affiliates and Associated Physician Practices is amultiple site organization consisting of ambulatory clinics and hospital sitesin [place], [place], [place]. This disclosure is being madepursuant to the Care Everywhere program and may not contain all information available regarding this patient. 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
--- OUTSIDE RECORDS SUMMARY | 2024-12-09 14:32 | XMS_ITS | Clinical Summary ---
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
--- NOTE | 2024-12-09 14:44 | PC.NURSE ---
Pt escorted to father's vehicle by ED staff and PD personell without incident.
== END 2024-12-09 14:38 | disposition home or self-care (01) ==
PROVIDERS: Emergency Provider Emergency Medicine; PCP Nurse Practitioner Family
DX: F41.9 Anxiety disorder, unspecified (principal); F71 Moderate intellectual disabilities; E78.5 Hyperlipidemia, unspecified; I10 Essential (primary) hypertension; Z79.899 Other long term (current) drug therapy
CPT/HCPCS: 96372; 99283; J2060